=== PATIENT | male | born 1940 | race Caucasian/White ===

== ENCOUNTER 2016-10-01 00:25 | Inpatient (IN) | payer OTHER, MEDICARE ==
[~2016-10-01] VITALS: Ht 172.7 cm; Wt 76.7 kg
[2016-10-01] VITALS (40 sets, daily range): BP systolic 85–114; BP diastolic 46–69; PULSE 60–72; RESP 12–30; TEMP 93.9–98.8; O2SAT 95–98
[~2016-10-01 00:25] MED LIST: CARV6.25 PO; DIGO0.12 PO; FURO1TAB93 PO; LANTUSP SQ; LEVA500T PO; LISI-357 PO; NOVOLOGP2 SQ; ROSU40 PO; SM A81CH PO; SPIR25TA PO; TAB-TAB PO; TAMS0.4C67 PO; WARF-20 PO
[2016-10-01] MEDS ORDERED: ASPI81CH37 CHEW (01:22)
[2016-10-01] MEDS ORDERED: DIGO0.127 PO (01:22)
[2016-10-01] MEDS ORDERED: NOVOLOGP2 SQ (01:22)
[2016-10-01] MEDS ORDERED: SPIR25TA PO (01:22)
[2016-10-01] MEDS ORDERED: LANTUS2P SQ (01:22)
[2016-10-01] MEDS ORDERED: MULTTAB67 PO (01:22)
[2016-10-01] MEDS ORDERED: WARF-20 PO (01:22)
[2016-10-01] MEDS ORDERED: LISI-519 PO (01:22)
[2016-10-01] MEDS ORDERED: CARV6.25 PO (01:22)
[2016-10-01] MEDS ORDERED: FURO1TAB60 PO (01:22)
[2016-10-01] MEDS ORDERED: SODIUM CHLORIDE 0.9% FLUSH 10 ML FLUSH IVF PRN (01:30)
[2016-10-01 01:44] LABS: AUTOMATED NEUTROPHIL # 10.4 TH/MM3 (1.8-7.7); BASOPHIL # 0.2 TH/MM3 (0-0.2); HEMATOCRIT 36.3 % (39.0-51.0); LYMPH % 6.3 % (9.0-44.0); LYMPHOCYTE # 0.8 TH/MM3 (1.0-4.8); MEAN CELL VOLUME 95.5 FL (80.0-100.0); MEAN CORPUSCULAR HGB CONC 32.4 % (32.0-36.0); MONO % 7.8 % (0.0-8.0); NEUT % 83.9 % (16.0-70.0); PLATELET COUNT 139 TH/MM3 (150-450); RED CELL DISTRIBUTION WIDTH 13.9 % (11.6-17.2); WHITE BLOOD COUNT 12.4 TH/MM3 (4.0-11.0)
[2016-10-01 01:48] LABS: HEMO FLAGS DIFF FINAL
[2016-10-01 01:51] LABS: CHLORIDE 101 MEQ/L (98-107); POTASSIUM 5.7 MEQ/L (3.5-5.1); SODIUM (NA) 136 MEQ/L (136-145)
[2016-10-01 01:54] LABS: ANION GAP 10 MEQ/L (5-15); BICARBONATE 24.6 MEQ/L (21.0-32.0); BLOOD UREA NITROGEN 35 MG/DL (7-18)
[2016-10-01 01:57] LABS: ALT (GPT) 49 U/L (12-78); AST (GOT) 72 U/L (15-37)
[2016-10-01 01:58] LABS: APTT (PATIENT) 32.3 SEC (24.3-30.1); GLOMERULAR FILTRATION RATE 42 ML/MIN (>89); INTERNATIONAL NORMALIZED RATIO 2.4 RATIO; PROTHROMBIN TIME - PATIENT 27.1 SEC (9.8-11.6)
[2016-10-01 01:59] LABS: TOTAL BILIRUBIN ADULT 1.8 MG/DL (0.2-1.0)
[2016-10-01 02:00] LABS: ALKALINE PHOSPHATASE 87 U/L (45-117)
[2016-10-01] MEDS ORDERED: PIPERACIL-TAZO 4.5 GM PREMIX 100 ML IV STA (02:01)
[2016-10-01] MEDS ORDERED: VANCOMYCIN INJ 1,000 MG in SODIUM CHLOR 0.9% 250 ML INJ 250 ML IV STA (02:01)
--- NOTE | 2016-10-01 02:04 | RADHPO ---
EXAM DATE/TIME: 10/01/2016 01:38 [facility] COMPARISON: CTA BRAIN W 3D RECON, November 10, 2011, 12:59. INDICATIONS : Syncopal episode. RADIATION DOSE: 63.75 CTDIvol (mGy) MEDICAL HISTORY : Cardiovascular disease. Cerebrovascular disease. Hypertension.Diabetes SURGICAL HISTORY : CABG Pacemaker.Coronary artery stent. ENCOUNTER: Initial ACUITY: 1 day PAIN SCALE: 0/10 LOCATION: cranial TECHNIQUE: Multiple contiguous axial images were obtained of the head. Using automated exposure control and adj ustment of the mA and/or kV according to patient size, radiation dose was kept as low as reasonably a chievable to obtain optimal diagnostic quality images. FINDINGS: Compared to 2011. No intracranial hemorrhage, mass or shift on the current exam. Focal encephalomalac ia left parietal lobe is stable. No acute bony abnormality. No recent infarct identified. CONCLUSION: 1. No acute intracranial abnormalities. Fady Srivastava MD on October 01, 2016 at 1:59 Board Certified Radiologist. This report was verified electronically.
--- NOTE | 2016-10-01 02:12 | RADHPO ---
EXAM DATE/TIME: 10/01/2016 01:52 [facility] COMPARISON: No previous studies available for comparison. INDICATIONS : Palpitations. MEDICAL HISTORY : None. SURGICAL HISTORY : Pacemaker. CABG. ENCOUNTER: Initial ACUITY: 1 day PAIN SCORE: 0/10 LOCATION: Bilateral chest FINDINGS: Pacer leads overlying right atrium and right ventral. Mild cardiomegaly. Postoperative median sternot phillip. Mild edema pattern. No significant effusions. No pneumothorax. CONCLUSION: 1. Cardiomegaly. Mild interstitial edema pattern. No significant effusion. No pneumothorax. Fady Srivastava MD on October 01, 2016 at 2:09 Board Certified Radiologist. This report was verified electronically.
[2016-10-01] MEDS ORDERED: SODIUM CHLORID 0.9% 500 ML INJ 500 ML IV ONE ×2 (03:15)
[2016-10-01 03:24] LABS: GLUCOSE,URINE NEG (NEG); KETONE, URINE NEG (NEG); NITRITE,URINE NEG (NEG); PH, URINE 5.5 (5.0-8.5)
[2016-10-01 03:29] LABS: BLOOD, URINE MOD (NEG)
[2016-10-01 03:30] LABS: COMMENT (UR) CATH-CULT NOT IND; CULTURE IF INDICATED CATH CULTURE NOT IND; RBC, URINE 0-3 /hpf (0-3); SQUAMOUS EPITHELIAL CELL URINE 0-5 /hpf (0-5); URINE COLOR YELLOW (YELLW/STRAW); WBC, URINE 0-2 /hpf (0-5)
--- NOTE | 2016-10-01 03:40 | PD ---
HPI Chief Complaint: Neuro Symptoms/ Deficits Time Seen by Provider: 01:16 Travel History International Travel<30 days: No Contact w/Intl Traveler<30days: No Traveled to known affect area: No History of Present Illness HPI This is a 76-year-old male who has a history of congestive heart failure and diabetes who presents to the emergency department having had an episode of syncope. Patient reports he was sitting down to dinner when all of a sudden he lost consciousness. He woke up and found himself on the floor. He had some weakness following the episode and had some difficulty standing up but was ultimately able to walk his dog and then call his friend helped him. He denies any chest pain or shortness of breath at the time. He says he hasn't been feeling ill lately. He did not lose his bowels or bladder. He does think he hit his head. He is not sure how long he was out for. He lives alone. PFSH Past Medical History Arthritis: Yes (RIGHT KNEE) Atrial Fibrillation: Yes Autoimmune Disease: No Cancer: No Cardiac Catheterization: Yes Cardiovascular Problems: Yes Chest Pain: No Congestive Heart Failure: Yes Coronary Artery Disease: Yes Diabetes: Yes (ON INSULIN) Patient Takes Glucophage: No Diminished Hearing: Yes (HEARING AIDS BILAT) Endocrine: No GERD: Yes Genitourinary: No Hypertension: Yes Immune Disorder: No Musculoskeletal: Yes Neurologic: No Psychiatric: No Reproductive: No Respiratory: No Thyroid Disease: No Influenza Vaccination: Yes Past Surgical History AICD: Yes Cardiac Surgery: Yes (BYPASS IN , AICD 1990, PACEMAKER) Coronary Artery Bypass Graft: Yes (1995) Coronary Stent: Yes (2000) Pacemaker: Yes Other Surgery: Yes Social History Alcohol Use: Yes () Tobacco Use: No (QUIT 2004) Substance Use: No Allergies-Medications (Allergen,Severity, Reaction): Coded Allergies: Amiodarone (Verified Allergy, Unknown, 10/01/16) Reported Meds & Prescriptions Reported Meds & Active Scripts Active Reported Warfarin 4 Mg Tab 4 Mg PO DAILY Spironolactone 25 Mg Tab 12.5 Mg PO DAILY Multiple Vitamin 1 Tab 1 Tab PO DAILY Lisinopril 5 Mg Tab 5 Mg PO DAILY Lantus Inj (Insulin Glargine) 1,000 Unit/10 Ml Vial 50 Units SQ HS Novolog Inj (Insulin Aspart) 1,000 Unit/10 Ml Vial 20 Units SQ TIDAC Lasix (Furosemide) 40 Mg Tab 40 Mg PO BID Digox (Digoxin) 0.125 Mg Tab 0.125 Mg PO DAILY Coreg (Carvedilol) 6.25 Mg Tab 6.25 Mg PO BID Aspirin Low Dose (Aspirin) 81 Mg Chew 81 Mg CHEW DAILY Review of Systems Except as stated in HPI: all other systems reviewed are Neg Physical Exam Narrative GENERAL:Well appearing, no acute distress SKIN: Some ecchymoses on the left forehead HEAD: Atraumatic. Normocephalic. EYES: Pupils equal and round. No injection or drainage. ENT: Dry mucous membranes NECK: Trachea midline. CARDIOVASCULAR: Regular rate and rhythm. No murmur appreciated. RESPIRATORY: Clear to auscultation. Breath sounds equal bilaterally. GASTROINTESTINAL: Abdomen soft, non-tender, nondistended. MUSCULOSKELETAL: No obvious deformities. NEUROLOGICAL: Awake and alert. No obvious cranial nerve deficits. No dysarthria or aphasia. No upper or lower extremity drift. No upper extremity ataxia. PSYCHIATRIC: Appropriate mood and affect; insight and judgment normal. Data Data Last Documented VS Vital Signs Date Time Temp Pulse Resp B/P Pulse Ox O2 Delivery O2 Flow Rate FiO2 10/01/16 03:30 68 14 94/53 95 Room Air 10/01/16 03:15 97.4 Orders Electrocardiogram (10/01/16 01:25) Complete Blood Count With Diff (10/01/16 01:25) Comprehensive Metabolic Panel (10/01/16 01:25) Troponin I (10/01/16 01:25) Act Partial Throm Time (Ptt) (10/01/16 01:25) Prothrombin Time / Inr (Pt) (10/01/16 01:25) Urinalysis - C+S If Indicated (10/01/16 01:25) Chest, Single Ap (10/01/16 01:25) Ecg Monitoring (10/01/16 01:25) Iv Access Insert/Monitor (10/01/16:25) Oximetry (10/01/16 01:25) Sodium Chloride 0.9% Flush (Ns Flush) (10/01/16 01:30) D-Dimer (10/01/16 01:25) Ct Brain W/O Iv Contrast(Rout) (10/01/16 ) Lactic Acid Sepsis Protocol (10/01/16 02:01) Blood Culture (10/01/16 02:01) Vancomycin Inj (Vancomycin Inj) (10/01/16 02:01) Piperacil-Tazo 4.5 Gm Premix (Zosyn 4.5 (10/01/16 02:01) Digoxin (10/01/16 02:01) B-Type Natriuretic Peptide (10/01/16 02:01) Electrocardiogram (10/01/16 ) Cath For Specimen (10/01/16 02:57) Sodium Chlorid 0.9% 500 Ml Inj (Ns 500 M (10/01/16 03:15) Sodium Chlorid 0.9% 500 Ml Inj (Ns 500 M (10/01/16 03:15) Creatine Kinase (Cpk) (10/01/16 01:30) Labs Laboratory Tests Test 10/01/16 10/01/16 10/01/16 01:30 02:20 03:15 White Blood Count 12.4 TH/MM3 Red Blood Count 3.80 MIL/MM3 Hemoglobin 11.8 GM/DL Hematocrit 36.3 % Mean Corpuscular Volume 95.5 FL Mean Corpuscular Hemoglobin 31.0 PG Mean Corpuscular Hemoglobin 32.4 % Concent Red Cell Distribution Width 13.9 % Platelet Count 139 TH/MM3 Mean Platelet Volume 9.0 FL Neutrophils (%) (Auto) 83.9 % Lymphocytes (%) (Auto) 6.3 % Monocytes (%) (Auto) 7.8 % Eosinophils (%) (Auto) 0.0 % Basophils (%) (Auto) 2.0 % Neutrophils # (Auto) 10.4 TH/MM3 Lymphocytes # (Auto) 0.8 TH/MM3 Monocytes # (Auto) 1.0 TH/MM3 Eosinophils # (Auto) 0.0 TH/MM3 Basophils # (Auto) 0.2 TH/MM3 CBC Comment DIFF FINAL Differential Comment Prothrombin Time 27.1 SEC Prothromb Time International 2.4 RATIO Ratio Activated Partial 32.3 SEC Thromboplast Time D-Dimer Quantitative (PE/DVT) 1.40 MG/L FEU Sodium Level 136 MEQ/L Potassium Level 5.7 MEQ/L Chloride Level 101 MEQ/L Carbon Dioxide Level 24.6 MEQ/L Anion Gap 10 MEQ/L Blood Urea Nitrogen 35 MG/DL Creatinine 1.60 MG/DL Estimat Glomerular Filtration 42 ML/MIN Rate Random Glucose 222 MG/DL Calcium Level 9.0 MG/DL Total Bilirubin 1.8 MG/DL Aspartate Amino Transf 72 U/L (AST/SGOT) Alanine Aminotransferase 49 U/L (ALT/SGPT) Alkaline Phosphatase 87 U/L Troponin I 0.30 NG/ML Total Protein 7.1 GM/DL Albumin 3.7 GM/DL Lactic Acid Level 2.6 mmol/L B-Type Natriuretic Peptide 536 PG/ML Digoxin Level 0.7 NG/ML Urine Color YELLOW Urine Turbidity CLEAR Urine pH 5.5 Urine Specific [place] 1.017 Urine Protein TRACE mg/dL Urine Glucose (UA) NEG mg/dL Urine Ketones NEG mg/dL Urine Occult Blood MOD Urine Nitrite NEG Urine Bilirubin NEG Urine Leukocyte Esterase NEG Urine RBC 0-3 /hpf Urine WBC 0-2 /hpf Urine Squamous Epithelial 0-5 /hpf Cells Urine Bacteria NONE /hpf Microscopic Urinalysis Comment CATH-CULT NOT IND MDM Medical Decision Making Medical Screen Exam Complete: Yes Emergency Medical Condition: Yes Interpretation(s) Hypothermia, no tachycardia, EKG: normotensive ventricular paced, T-wave inversions in the inferior and lateral leads similar to prior EKG Leukocytosis Mild anemia INR is 2.4 (patient is on Coumadin) D-dimer is 1.4 Renal insufficiency Hyperglycemia Total bilirubin is 1.8 similar to prior Lactic acid is 2.6 Troponin is 0.3 BNP is 536 Chest x-ray: Cardiomegaly with mild interstitial edema CT of the head: No intracranial hemorrhage Differential Diagnosis Arrhythmia, myocardial infarction, dehydration, orthostatic hypotension, sepsis , electrolyte abnormality, rhabdomyolysis Narrative Course This is a 76-year-old male who presents to the emergency department having had an episode of syncope at home. He has multiple comorbidities. He was placed on a monitor and an IV was established. He is found to be quite hypothermic. He also had a slight leukocytosis so he was covered with broad-spectrum antibiotics. He has a history congestive heart failure and his BNP is 500 so he was given cautious gentle hydration. He does demonstrate renal insufficiency. His troponin is 0.3 which may be in the setting of a cardiac event but also may be due to renal insufficiency. Bilirubin is unchanged from prior. Patient appears to have severe sepsis of uncertain etiology. He will be admitted to the intensive care unit given his fragile volume status and hypothermia. Critical Care Narrative Aggregate critical care time was 45 minutes. Time to perform other separately billable procedures was not included in the critical care time. My time did not include minutes spent treating any other patients simultaneously or on activities that did not directly contribute to the patient's treatment. The services I provided to this patient were to treat and/or prevent clinically significant deterioration that could result in: Disability, I provided critical care services requiring my management, as noted below: Chart data review, documentation time, medication orders and management, vital sign assessments/reviewing monitor data, ordering and reviewing lab tests, ordering and interpreting/reviewing x-rays and diagnostic studies, care of the patient and discussion of the patient with the admitting physicians. Physician Communication Physician Communication Discussed with Dr. Santos Diagnosis Primary Impression: Severe sepsis Admitting Information Admitting Physician Requests: Admit Samantha Johns MD Oct 01, 2016 03:40
[2016-10-01 04:24] LABS: CREATINE KINASE 1944 U/L (39-308)
[2016-10-01 04:28] LABS: LACTIC ACID GHOST NOT REPORTABLE
[2016-10-01 05:08] LABS: CKMB 41.4 NG/ML (0.5-3.6)
[2016-10-01] MEDS ORDERED: CHLORHEXIDINE GLUCONATE 2 % 1 PACK (2 CLOTHS)(extra cloths) TOPICAL PRN (06:15)
[2016-10-01] MEDS: SODIUM CHLOR 0.9% 1000 ML INJ 1,000 ML IV SCH (06:42)
[2016-10-01] MEDS ORDERED: SENNOSIDES 8.6 MG TAB PO PRN (06:45)
[2016-10-01] MEDS ORDERED: BISACODYL 10 MG SUPP RECTAL PRN (06:45)
[2016-10-01] MEDS ORDERED: LACTULOSE SYRUP 20 GM/30 ML CUP PO PRN (06:45)
[2016-10-01] MEDS ORDERED: ACETAMINOPHEN 325 MG TAB PO PRN (06:45)
[2016-10-01] MEDS ORDERED: RESP: ALBUTEROL 2.5 MG/IPRATROPIUM 0.5 MG NEB (PRN) INH (06:45)
[2016-10-01] MEDS ORDERED: DEXTROSE 50% IN WATER 50 ML VIAL(D50) IV PRN (06:45)
[2016-10-01] MEDS ORDERED: ONDANSETRON HCL 4 MG/2 ML VIAL IV PRN (06:45)
[2016-10-01] MEDS ORDERED: CHLORHEXIDINE GLUCONATE 2 % 1 PACK (2 CLOTHS) TOP PRN (06:45)
[2016-10-01] MEDS ORDERED: MISCELLANEOUS NURSING INFORMATION XX SCH (06:45)
[2016-10-01] MEDS ORDERED: MAGNESIUM HYDROXIDE SUSP 30 ML CUP PO PRN (06:45)
[2016-10-01] MEDS ORDERED: GLUCAGON 1 MG/ML VIAL OTHER PRN (06:45)
[2016-10-01] MEDS ORDERED: SODIUM CHLORIDE 0.9% FLUSH 10 ML FLUSH IV FLUSH PRN (06:45)
[2016-10-01] MEDS: INSULIN NovoLIN REGULAR SUPPLEMENTAL SCALE SQ SCH ×4 (07:00→20:27)
--- NOTE | 2016-10-01 07:12 | HHI.HP ---
[facility] Service Critical Care Medicine Primary Care Physician Augie Tena Do, MD Admission Diagnosis severe sepsis Diagnosis: Travel History International Travel<30 Days: No Contact w/Intl Traveler <30 Da: No Traveled to Known Affected Are: No History of Present Illness This is a 76-year-old male who has a history of congestive heart failure and diabetes who presents to the emergency department having had an episode of syncope. Patient reports he was sitting down to dinner when all of a sudden he lost consciousness. He woke up and found himself on the floor. He had some weakness following the episode and had some difficulty standing up but was ultimately able to walk his dog and then call his friend helped him. He denies any chest pain or shortness of breath at the time. Critical care medicine was consulted for management .Upon my arrival to the ICU, the patient was noted to be sitting up semi-recumbent in the bed no noted dyspnea, alert and oriented 3 with a BP of 103/70. Upon discussion with patient, the patient has a AICD and per his report is needed to be changed/replaced. The patient does not remember experiencing an arrhythmia last night. Interrogation of AICD is pending this a.m.. History PFSH Past Medical History Arthritis: Yes (RIGHT KNEE) Atrial Fibrillation: Yes Autoimmune Disease: No Cancer: No Cardiac Catheterization: Yes Cardiovascular Problems: Yes Chest Pain: No Congestive Heart Failure: Yes Coronary Artery Disease: Yes Diabetes: Yes (ON INSULIN) Patient Takes Glucophage: No Diminished Hearing: Yes (HEARING AIDS BILAT) Endocrine: No GERD: Yes Genitourinary: No Hypertension: Yes Immune Disorder: No Musculoskeletal: Yes Neurologic: No Psychiatric: No Reproductive: No Respiratory: No Thyroid Disease: No Influenza Vaccination: Yes Past Surgical History AICD: Yes Cardiac Surgery: Yes (BYPASS IN , AICD 1990, PACEMAKER) Coronary Artery Bypass Graft: Yes (1995) Coronary Stent: Yes (2000) Pacemaker: Yes Other Surgery: Yes Social History Alcohol Use: Yes () Tobacco Use: No (QUIT 2004) Substance Use: No Allergies-Medications Allergies-Medications (Allergen,Severity, Reaction): Coded Allergies: Amiodarone (Verified Allergy, Unknown, 10/01/16) Reported Meds & Prescriptions Reported Meds & Active Scripts Active Reported Warfarin 4 Mg Tab 4 Mg PO DAILY Spironolactone 25 Mg Tab 12.5 Mg PO DAILY Multiple Vitamin 1 Tab 1 Tab PO DAILY Lisinopril 5 Mg Tab 5 Mg PO DAILY Lantus Inj (Insulin Glargine) 1,000 Unit/10 Ml Vial 50 Units SQ HS Novolog Inj (Insulin Aspart) 1,000 Unit/10 Ml Vial 20 Units SQ TIDAC Lasix (Furosemide) 40 Mg Tab 40 Mg PO BID Digox (Digoxin) 0.125 Mg Tab 0.125 Mg PO DAILY Coreg (Carvedilol) 6.25 Mg Tab 6.25 Mg PO BID Aspirin Low Dose (Aspirin) 81 Mg Chew 81 Mg CHEW DAILY ROS Review of Systems Except as stated in HPI: all other systems reviewed are Neg Past Family Social History Allergies: Coded Allergies: Amiodarone (Verified Allergy, Unknown, 10/01/16) Physical Exam Vital Signs Vital Signs Date Time Temp Pulse Resp B/P Pulse Ox O2 Delivery O2 Flow Rate FiO2 10/01/16 05:30 62 14 102/50 98 Room Air 10/01/16 05:00 97.8 61 14 97/56 98 Room Air 10/01/16 04:30 64 12 113/49 97 Room Air 10/01/16 04:00 64 12 96/48 96 Room Air 10/01/16 04:00 64 14 97 10/01/16 03:30 68 14 94/53 95 Room Air 10/01/16 03:15 97.4 69 14 114/62 97 Room Air 10/01/16 02:35 97.4 72 14 103/67 96 Room Air 10/01/16 02:00 72 14 111/56 97 Room Air 10/01/16 01:35 93.9 10/01/16 01:05 68 14 98 10/01/16 01:00 18 97 Room Air 10/01/16 01:00 68 14 101/69 97 Room Air 10/01/16 00:45 69 12 111/54 97 Laboratory Laboratory Tests Test 10/01/16 10/01/16 10/01/16 10/01/16 01:30 02:20 03:15 06:25 White Blood Count 12.4 Red Blood Count 3.80 Hemoglobin 11.8 Hematocrit 36.3 Mean Corpuscular Volume 95.5 Mean Corpuscular Hemoglobin 31.0 Mean Corpuscular Hemoglobin 32.4 Concent Red Cell Distribution Width 13.9 Platelet Count 139 Mean Platelet Volume 9.0 Neutrophils (%) (Auto) 83.9 Lymphocytes (%) (Auto) 6.3 Monocytes (%) (Auto) 7.8 Eosinophils (%) (Auto) 0.0 Basophils (%) (Auto) 2.0 Neutrophils # (Auto) 10.4 Lymphocytes # (Auto) 0.8 Monocytes # (Auto) 1.0 Eosinophils # (Auto) 0.0 Basophils # (Auto) 0.2 CBC Comment DIFF FINAL Differential Comment Prothrombin Time 27.1 Prothromb Time International 2.4 Ratio Activated Partial 32.3 Thromboplast Time D-Dimer Quantitative (PE/DVT) 1.40 Sodium Level 136 Potassium Level 5.7 Chloride Level 101 Carbon Dioxide Level 24.6 Anion Gap 10 Blood Urea Nitrogen 35 Creatinine 1.60 Estimat Glomerular Filtration 42 Rate Random Glucose 222 Calcium Level 9.0 Total Bilirubin 1.8 Aspartate Amino Transf 72 (AST/SGOT) Alanine Aminotransferase 49 (ALT/SGPT) Alkaline Phosphatase 87 Total Creatine Kinase 1944 Creatine Kinase MB 41.4 Creatine Kinase MB % 2.1 Troponin I 0.30 Total Protein 7.1 Albumin 3.7 Lactic Acid Level 2.6 1.9 B-Type Natriuretic Peptide 536 Digoxin Level 0.7 Urine Color YELLOW Urine Turbidity CLEAR Urine pH 5.5 Urine Specific [place] 1.017 Urine Protein TRACE Urine Glucose (UA) NEG Urine Ketones NEG Urine Occult Blood MOD Urine Nitrite NEG Urine Bilirubin NEG Urine Leukocyte Esterase NEG Urine RBC 0-3 Urine WBC 0-2 Urine Squamous Epithelial 0-5 Cells Urine Bacteria NONE Microscopic Urinalysis Comment CATH-CULT NOT IND Date/Time Procedure Status Source Growth 10/01/16 02:26 Aerobic Blood Culture Received Blood Peripheral Pending 10/01/16 02:26 Anaerobic Blood Culture Received Blood Peripheral Pending Result Diagram: 10/01/16 0130 10/01/16 0130 Imaging Last Impressions Chest X-Ray 10/01/16 0125 Signed Impressions: Service Date/Time: Saturday, October 01, 2016 01:52 - CONCLUSION: 1. Cardiomegaly. Mild interstitial edema pattern. No significant effusion. No pneumothorax. Fady Srivastava MD Head CT 10/01/16 0000 Signed Impressions: Service Date/Time: Saturday, October 01, 2016 01:38 - CONCLUSION: 1. No acute intracranial abnormalities. Fady Srivastava MD Septic Shock Reassessment Heart: Irregular Peripheral Pulses: Bounding Right Radial Bounding Left Radial Assessment and Plan Assessment and Plan This is a 76-year-old gentleman, with cardiovascular disease with a remote history status post CABG coronary stents, cardiomegaly, AICD with a history of systolic heart failure. Unknown etiology of syncopal episode at this point. [employer] interrogation of AICD pending this a.m.. Patient's current digoxin level was noted to be subtherapeutic,and his creatinine kinase level significantly elevated. Lactate level elevated possibly secondary to ischemic versus infectious etiology. At this point the patient requires close monitoring. Plan by systems: Neurologic: Syncopal episode Neurochecks per ICU protocol-the patient is status post fall, w/LOC and currently anticoagulated, close monitoring required Currently GCS of 15 10/01 CT scan no intracranial abnormalities Neosporin ointment to skin abrasions on for head Respiratory: Mild pulmonary edema Maintain O2 sat greater than 92%, currently on O2 at 2 L/m Bronchodilators every 4 hours when necessary for wheezing Cardiovascular: History of systolic congestive heart failure Atrial fibrillation H/O CABG H/O Coronary stent placement AICD placement 2009 Maintain map greater than 65 mmHg Consider vasopressor support if necessary AICD105/18/[id number], [id number] [employer]-plan interrogation this a.m., review of records for defibrillation pattern Patient's personal family medicine chair-Dr. Shree Ruff Cardiology [id number] recommendations Digoxin level 0.7-subtherapeutic, continue home medication digoxin 0.125/day, carvedilol 6.25/day, ASA 81 mg/daily. Hold lisinopril for now-secondary to low normal blood pressure, will resume when clinically indicated. Patient currently on Coumadin-INR 2.2, will hold for today, continue neuro checks-resume in a.m. if clinically indicated Obtain [id number] results BNP 538 Initial troponin 0.3-continue to trend Renal: Renal insufficiency Rhabdomyolysis BPH Insert Lazo Creatinine kinase 1943-gentle hydration instituted, trend levels -- Strict I/Os FEN/GI: Hyperkalemia IV fluids normal saline at 42 cc/hour Hold spironolactone , potassium level 5.7. Will reinstitute Lasix when clinically indicated with normalization of blood pressure 1800-calorie ADA diet Zofran for nausea Protonix GI prophylaxis Bowel regimen Heme/ID: Thrombocytopenia Lactic acidosis Monitor CBC INR 2.2-patient medication regimen Coumadin, will continue to monitor-and restart Coumadin in a.m. Patient placed on Zosyn, and Linezolid empirically, will descalate if indicated Follow-up blood cultures, urine cultures Trend lactate level-possibly ischemia versus infectious process Obtain pro-calcitonin Endocrine: Diabetes mellitus Glucose monitoring per ICU protocol Low-dose insulin regimen -- SSI Prophylaxis: GI Prophylaxis Protonix DVT Prophylaxis -- SCDs INR 2.2-patient takes Coumadin daily Lines: Peripheral IVs 2. Central line if indicated Dispo: This patient remains critically ill with one or more organ systems which are or may become a threat to life. I have spent in excess of 60 minutes discontinuously in the care and management of this patient. This time is exclusive of procedures, and includes, but is not limited to, evaluation of the patient, review of the medical record, discussions with family, consultants, nursing staff, or respiratory therapy, and documentation in the medical record. Code Status Full Discussed Condition With LEADER TIER and patient at bedside Kellie Bolivar MD Oct 01, 2016 07:12
[2016-10-01] MEDS ORDERED: LINEZOLID 200 MG PREMIX 100 ML IV SCH (08:00)
[2016-10-01] MEDS: CARVEDILOL 6.25 MG TAB PO SCH ×2 (08:28→20:26)
[2016-10-01] MEDS: PIPERACIL-TAZO 4.5 GM PREMIX 100 ML IV SCH ×3 (08:28→18:02)
[2016-10-01] MEDS: DIGOXIN 0.125 MG TAB PO SCH (08:28)
[2016-10-01] MEDS: ASPIRIN 81 MG CHEW TAB CHEW SCH (08:28)
[2016-10-01] MEDS: PANTOPRAZOLE SODIUM 40 MG VIAL IV SCH (08:28)
[2016-10-01] MEDS: DOCUSATE SODIUM 50 MG/SENNA 8.6 MG TAB PO SCH ×2 (08:31→20:26)
[2016-10-01] MEDS: SODIUM CHLORIDE 0.9% FLUSH 10 ML FLUSH IV FLUSH SCH ×2 (08:32→20:26)
[2016-10-01] MEDS: NEOMYCIN/POLYMYXIN/BACITRACIN OINT 15 GM TUBE TOPICAL SCH ×2 (10:32→12:00)
[2016-10-01] MEDS: LINEZOLID 600 MG PREMIX 300 ML IV SCH ×2 (10:33→21:57)
[2016-10-01] MEDS ORDERED: BACITRACIN TOP OINT 15 GM TUBE TOPICAL SCH (12:00)
--- NOTE | 2016-10-01 13:08 | EKG ---
Date Performed: 10/01/2016 Time Performed: 02:12:47 PTAGE: 76 years EKG: UNCERTAIN IRREGULAR RHYTHM ELECTRONIC VENTRICULAR PACEMAKER -- CONTOUR ANALYSIS BASED ON IN TRINSIC RHYTHM POSSIBLE ANTERIOR MYOCARDIAL INFARCTION MODERATE T-WAVE ABNORMALITY, CONSIDER LATERAL ISCHEMIA MODERATE T-WAVE ABNORMALITY, CONSIDER INFERIOR ISCHEMIA ABNORMAL ECG PREVIOUS TRACING : 10/26/2013 20.07 Compared to prior tracing no significant change DOCTOR: Flip Roberto Interpretating Date/Time 10/01/2016 13:06:15
--- NOTE | 2016-10-01 16:25 | RADHPO ---
EXAM DATE/TIME: 10/01/2016 20:14 [facility] COMPARISON: No previous studies available for comparison. INDICATIONS : Syncope. MEDICAL HISTORY : Congestive heart failure. Arthritis. Diabetes mellitus type 1. CAD. Afib. HTN. GERD SURGICAL HISTORY : CABG. Pacemaker. Coronary artery stent. Cardiac cath. Blood transfusions. ENCOUNTER: Initial ACUITY: 2 days PAIN SCORE: 0/10 LOCATION: Bilateral neck PEAK SYSTOLIC VELOCITIES (cm/sec): ICA/CCA RATIO: Right: 0.9 Left: 0.7 ICA: Right: 79 Left: 75 CCA: Right: 85 Left: 115 ECA: Right: 96 Left: 120 VERTEBRAL: Right: 66 antegrade Left: 54 antegrade Elevated flow velocities and ICA/CCA ratios have been found to correlate with increased degrees of vessel stenosis, calculated as percentage of diameter relative to a normal segment of distal ICA/CCA FINDINGS: RIGHT CAROTID: Calcified plaque in the bulb extending to the internal carotid artery origin. Waveforms are within no rmal limits. LEFT CAROTID: Calcified plaque in the bulb. Waveforms are within normal limits. VERTEBRAL ARTERIES: Antegrade flow is seen in both vertebral arteries. MISCELLANEOUS: None. CONCLUSION: 1. Calcified plaque in the bulbs bilaterally extending to the origin of the ICA. Resultant mild, <50% , ICA stenosis. No significant hemodynamic stenosis on the left. 2. Antegrade vertebral artery flow bilaterally. Gaudencio Serrano MD on October 01, 2016 at 16:19 Board Certified Radiologist. This report was verified electronically.
--- NOTE | 2016-10-01 16:43 | ECHRPT ---
Indication: Heart failure, unspecified CONCLUSIONS Normal left ventricular size. There is dyskinesis of the apical 1/3 with moderate dysfunction at this area. The rest of the ventri alfonso moves well. The EF appears to be between 40-45%wall thickness is normal. This study was not technically sufficient to allow for evaluation of left ventricular diastolic func tion. Mild thickening of the mitral valve leaflets. Moderate mitral valve regurgitation. Moderate mitral annular calcification. There is also calcification on the anterior lateral papillary muscle Mild to moderate thickening of the aortic valve leaflets. Moderate aortic valve regurgitation. No aortic valve stenosis. Mild to moderate thickening of the aortic valve leaflets. Pacemaker seen in right heart. Structurally normal tricuspid valve. There is moderate to severe tricuspid valve regurgitation. There is estimated mild pulmonary hypertension present (range 40-50 mmHg). BP: 102 / 50 HR: 67 Rhythm: SINUS AND PACING MEASUREMENTS (Male / Female) Normal Values Technical Quality:Fair 2D ECHO LV Diastolic Diameter PLAX 5.1 cm 4.2 - 5.9 / 3.9 - 5.3 cm LV Systolic Diameter PLAX 4.2 cm IVS Diastolic Thickness 0.9 cm 0.6 - 1.0 / 0.6 - 0.9 cm LVPW Diastolic Thickness 0.9 cm 0.6 - 1.0 / 0.6 - 0.9 cm LV Relative Wall Thickness 0.4 LVOT Diameter 2.0 cm Aortic Root Diameter 3.2 cm LA Systolic Diameter LX 3.8 cm 3.0 - 4.0 / 2.7 - 3.8 cm M-MODE AV Cusp Separation MM 1.7 cm DOPPLER AV Peak Velocity 142.0 cm/s AV Peak Gradient 8.1 mmHg AV Mean Gradient 4.0 mmHg AV Velocity Time Integral 29.9 cm AI Peak Velocity 317.7 cm/s AI Peak Gradient 40.4 mmHg AI Pressure Half Time 637.0 ms LVOT Peak Velocity 66.0 cm/s LVOT Peak Gradient 1.7 mmHg LVOT Velocity Time Integral 14.2 cm LVOT Cardiac Index 1515.9 cm/minm AV Area Cont Eq vti 1.5 cm AV Area Cont Eq pk 1.5 cm Mitral E Point Velocity 99.3 cm/s Mitral A Point Velocity 32.4 cm/s Mitral E to A Ratio 3.1 LV E' Lateral Velocity 6.7 cm/s Mitral E to LV E' Lateral Ratio 14.8 LV E' Septal Velocity 5.7 cm/s Mitral E to LV E' Septal Ratio 17.6 TR Peak Velocity 278.0 cm/s TR Peak Gradient 30.9 mmHg PV Peak Velocity 53.5 cm/s PV Peak Gradient 1.1 mmHg FINDINGS LEFT VENTRICLE Normal left ventricular size. There is dyskinesis of the apical 1/3 with moderate dysfunction at this area. The rest of the ventri alfonso moves well. The EF appears to be between 40-45%wall thickness is normal. This study was not technically sufficient to allow for evaluation of left ventricular diastolic func tion. RIGHT VENTRICLE Normal right ventricular size and systolic function. LEFT ATRIUM The left atrial size is [id number] dilated. RIGHT ATRIUM The right atrial size is [id number] dilated. ATRIAL SEPTUM Normal atrial septal thickness without atrial level shunting by limited color doppler interrogation. AORTA The aortic root and proximal ascending aorta are normal in size on limited imaging. MITRAL VALVE Mild thickening of the mitral valve leaflets. Moderate mitral valve regurgitation. Moderate mitral annular calcification. There is also calcification on the anterior lateral papillary muscle. AORTIC VALVE Mild to moderate thickening of the aortic valve leaflets. Moderate aortic valve regurgitation. No aortic valve stenosis. TRICUSPID VALVE Pacemaker seen in right heart. Structurally normal tricuspid valve. There is moderate to severe tricuspid valve regurgitation. There is estimated mild pulmonary hypertension present (range 40-50 mmHg). PULMONARY VALVE Mild pulmonary valve regurgitation. VESSELS The inferior vena cava is dilated. PERICARDIUM No pericardial effusion. Madiha Stallworth MD, FACC (Electronically Signed) Final Date:01 October 2016 16:42
--- NOTE | 2016-10-01 18:37 | MB ---
cc: CATHLEEN SALINAS MD DATE OF CONSULTATION 10/01/16 REASON FOR CONSULTATION Syncope HISTORY OF PRESENT ILLNESS Mr. Sims is a 76-year-old patient of my partner, Dr. Ruff. He does have a history of atrial fibrillation, coronary artery bypass graft, ICD. He presented to the emergency room after a syncopal episode. The patient reports that he was moving about the dining room at dinnertime. He had a sudden loss of consciousness without any prodromal symptoms. He was subsequently weak and did obviously seek attention in the emergency room. The patient denies any chest pain or palpitations either then or now. PAST MEDICAL HISTORY 1. Arthritis, 2. Atrial fibrillation with a CHADS score six (over 75, diabetic, hypertension, CVA, CHF) That makes the CHADS score of 7. 3. He does have history of coronary artery bypass graft with EF of 35-40%, Medtronic ICD, 4. Diabetes, 5. Hypertension, 6. Hyperlipidemia, 7. Left bundle branch block, 8. V tach, 9. Chronic kidney disease 10. Chronic obstructive pulmonary disease 11. Subarachnoid hemorrhage. 12. Very hard of hearing. SOCIAL HISTORY The patient is a former smoker. He occasionally has alcohol. ALLERGIES AMIODARONE MEDICATIONS Outpatient include 1. Coumadin. 2. Spironolactone. 3. Lisinopril. 4. Insulin 5. Lasix. 6. Digoxin. 7. Coreg 8. Aspirin REVIEW OF SYSTEMS The patient does note that he has had about an eight pound weight gain. Other than this and what is mentioned in the HPI, all 12 systems are negative. PHYSICAL EXAMINATION VITAL SIGNS: 60, 18, 85/49. GENERAL: He is an overweight elderly man who is in no apparent distress. NECK: Free from JVD. LUNGS: Do have a few crackles in the bases. CARDIOVASCULAR: He has a normal S1 and S2. ABDOMEN: Soft. EXTREMITIES: A trace amount of edema. LABORATORY DATA Significant for white count of 12.4, INR of 2.4. His creatinine is 1.6. CK-MB percent is 2.1 with a troponin of 0.3 and a BNP of 536. IMAGING STUDIES Chest x-ray shows cardiomegaly and mild interstitial edema. CT head is negative for any acute process. ICD INTERROGATION ICD interrogation does show that there is normal device function. His thoracic impedance suggests that there is fluid overload. No therapies were delivered nor were any tachyarrhythmias found. IMPRESSION 1. Syncope - the patient does not have any overt etiology beyond the apparent hypotension. He is relatively stable today. At this point, he does as well appear to be septic, although there is no overt source of infection. This obviously could have as well contributed. 2. Hypotension - At this point, I do agree with holding the lisinopril. We may have to decrease his Coreg as well, although I am a bit apprehensive to do this secondary to his history of atrial fibrillation. 3. Atrial fibrillation - the patient does have elevated CHADS vas score and thus at this point I would continue him on his Coumadin, although I will ultimately leave the choice to his primary cyber legal advisor, Dr. Ruff, as to whether he should stay on this or not. 4. Acute on chronic heart failure - the patient is bit hypotensive. Given his current situation with the hypotension and probable sepsis, I do agree with holding his lisinopril. I would like to try and restart his Lasix should his systolics get back into the 90s. Dobutamine is not unreasonable, although I am not in favor of it at this time and would rather hold off to allow the antibiotics some time to work. 5. Sepsis - this is being managed by the primary team. Cathleen Salinas M.D. KINZA/ /3:26 PM /6:17 PM
[2016-10-01 20:42] LABS: CKMB 21.4 NG/ML (0.5-3.6)
[2016-10-02] VITALS (27 sets, daily range): BP systolic 94–128; BP diastolic 49–71; PULSE 58–72; RESP 14–27; TEMP 97.7–98.7; O2SAT 87–98
[2016-10-02] MEDS: PIPERACIL-TAZO 4.5 GM PREMIX 100 ML IV SCH ×2 (00:11→06:09)
[2016-10-02] MEDS: NEOMYCIN/POLYMYXIN/BACITRACIN OINT 15 GM TUBE TOPICAL SCH ×4 (00:11→23:41)
[2016-10-02] MEDS: CHLORHEXIDINE GLUCONATE 2 % 1 PACK (2 CLOTHS)(taper/protocol) TOPICAL SCH (03:42)
[2016-10-02] MEDS ORDERED: CHLORHEXIDINE GLUCONATE 2 % 1 PACK (2 CLOTHS) TOP SCH (04:00)
[2016-10-02] MEDS: SODIUM CHLOR 0.9% 1000 ML INJ 1,000 ML IV SCH (06:10)
[2016-10-02 06:14] LABS: AUTOMATED NEUTROPHIL # 5.4 TH/MM3 (1.8-7.7); BASOPHIL # 0.1 TH/MM3 (0-0.2); BASOPHIL % 0.8 % (0.0-2.0); EOSINOPHIL # 0.1 TH/MM3 (0-0.4); EOSINOPHIL % 0.6 % (0.0-4.0); HEMATOCRIT 33.8 % (39.0-51.0); HEMO FLAGS DIFF FINAL; LYMPH % 21.9 % (9.0-44.0); LYMPHOCYTE # 1.9 TH/MM3 (1.0-4.8); MEAN CELL VOLUME 95.1 FL (80.0-100.0); MEAN CORPUSCULAR HEMOGLOBIN 31.2 PG (27.0-34.0); MEAN CORPUSCULAR HGB CONC 32.8 % (32.0-36.0); MONO % 11.6 % (0.0-8.0); NEUT % 65.1 % (16.0-70.0); PLATELET COUNT 131 TH/MM3 (150-450); RED BLOOD COUNT 3.56 MIL/MM3 (4.50-5.90); RED CELL DISTRIBUTION WIDTH 14.4 % (11.6-17.2); WHITE BLOOD COUNT 8.5 TH/MM3 (4.0-11.0)
--- NOTE | 2016-10-02 06:15 | RADHPO ---
EXAM DATE/TIME: 10/02/2016 05:59 [facility] COMPARISON: CHEST SINGLE AP, October 01, 2016, 1:52. INDICATIONS : Shortness of breath. MEDICAL HISTORY : Congestive heart failure. Diabetes mellitus type I. Arthritis. CAD, AFIB, HTN, GERD SURGICAL HISTORY : CABG. Pacemaker. Coronary artery stent. ENCOUNTER: Subsequent ACUITY: 2 days PAIN SCORE: 0/10 LOCATION: Bilateral chest FINDINGS: Single AP view of the chest. AICD in place. Median sternotomy wires. Mild pulmonary vasculature centr al prominence and indistinctness. No evidence of pleural effusion or pneumothorax. Mild cardiac silho uette enlargement unchanged. CONCLUSION: Mild cardiac silhouette enlargement and pulmonary vascular congestion. No significant interval change . Yasmani Valentine MD on October 02, 2016 at 6:13 Board Certified Radiologist. This report was verified electronically.
[2016-10-02 06:22] LABS: INTERNATIONAL NORMALIZED RATIO 2.3 RATIO; PROTHROMBIN TIME - PATIENT 26.5 SEC (9.8-11.6)
[2016-10-02 06:30] LABS: BICARBONATE 26.9 MEQ/L (21.0-32.0); MAGNESIUM 2.3 MG/DL (1.5-2.5); POTASSIUM 4.3 MEQ/L (3.5-5.1)
[2016-10-02] MEDS ORDERED: DO NOT ADM ANY ANTICOAGULANT DRUGS OTHER PRN (07:00)
--- NOTE | 2016-10-02 07:04 | HHI.CCPN ---
Subjective Remarks/Hospital Course This is a 76-year-old male who has a history of congestive heart failure and diabetes who presents to the emergency department having had an episode of syncope. Patient reports he was sitting down to dinner when all of a sudden he lost consciousness. He woke up and found himself on the floor. He had some weakness following the episode and had some difficulty standing up but was ultimately able to walk his dog and then call his friend helped him. He denies any chest pain or shortness of breath at the time. Critical care medicine was consulted for management .Upon my arrival to the ICU, the patient was noted to be sitting up semi-recumbent in the bed no noted dyspnea, alert and oriented 3 with a BP of 103/70. Upon discussion with patient, the patient has a AICD and per his report is needed to be changed/replaced. The patient does not remember experiencing an arrhythmia last night. Interrogation of AICD is pending this a.m.. Subjective: 10/02: Resolution of hypotension, CALVIN inhibitor continues to be held. Serial troponins level were noted to be elevated, cardiology following. The patient continues on beta igor,aspirin and digoxin. Neuro checks within normal limits, Coumadin and Lasix resumed today, current INR 2.3.. Spironolactone still on hold secondary to initial hyperkalemia. Creatinine kinase trending down, gentle hydration continues 30 cc/hour. Leukocytosis resolved, patient continues Linezolid and Zosyn, and empirically. Patient is tolerating a heart healthy diet. The patient has BPH and was noted to have significant urinary retention, yesterday with insertion of the Lazo obtaining greater than 600 cc. Interrogation of AICD, noted no defibrillations. Objective Vital Signs Date Time Temp Pulse Resp B/P Pulse Ox O2 Delivery O2 Flow Rate FiO2 10/02/16 06:00 62 10/02/16 06:00 23 110/55 96 10/02/16 04:00 98.7 10/01/16 20:00 Nasal Cannula 2.00 Intake and Output 10/01/16 10/01/16 10/02/16 08:00 16:00 00:00 Intake Total 750 ml 1307 ml 550 ml Output Total 430 ml 825 ml 275 ml Balance 320 ml 482 ml 275 ml Result Diagram: 10/02/16 0541 10/02/16 0541 Imaging Last Impressions Chest X-Ray 10/01/16 0125 Signed Impressions: Service Date/Time: Saturday, October 01, 2016 01:52 - CONCLUSION: 1. Cardiomegaly. Mild interstitial edema pattern. No significant effusion. No pneumothorax. Fady Srivastava MD Head CT 10/01/16 0000 Signed Impressions: Service Date/Time: Saturday, October 01, 2016 01:38 - CONCLUSION: 1. No acute intracranial abnormalities. Fady Srivastava MD Objective Remarks GENERAL: Well-developed, well-nourished male in no apparent distress SKIN: Warm and dry. Multiple abrasions on forehead and hands and knee from fall HEAD: Atraumatic. Normocephalic. EYES: Pupils equal and round. No scleral icterus. No injection or drainage. ENT: No nasal bleeding or discharge. Mucous membranes pink and moist. NECK: Trachea midline. No JVD. CARDIOVASCULAR: Normal rate, irregular rhythm. RESPIRATORY: No accessory muscle use. Clear to auscultation. Breath sounds equal bilaterally. GASTROINTESTINAL: Abdomen soft, non-tender, nondistended. No guarding. MUSCULOSKELETAL: Extremities without clubbing, cyanosis, or edema. No obvious deformities. NEUROLOGICAL: Awake and alert. RASS 0. No gross focal/sensory deficits. Follows commands in all 4 extremities. Urinary Catheter: Yes Lazo insert reason: ICU Pt Getting Diuretics Date of Insertion: Oct 01, 2016 Vascular Central Line Catheter: No A/P Assessment and Plan Neurologic: Syncopal episode Neurochecks per ICU protocol-the patient is status post fall, w/LOC and currently anticoagulated, close monitoring required Currently GCS of 15 10/01 CT scan no intracranial abnormalities Neosporin ointment to skin abrasions on for head Respiratory: Mild pulmonary edema Maintain O2 sat greater than 92%, currently 97% Wean off O2 Bronchodilators every 4 hours when necessary for wheezing Cardiovascular: History of systolic congestive heart failure Atrial fibrillation H/O CABG H/O Coronary stent placement AICD placement 2009- VVIR AMI Maintain map greater than 65 mmHg Consider vasopressor support if necessary 03/17/2010-[id number], [id number] Medtronic-review of records for defibrillation pattern-none noted Patient's personal director of academic support-Dr. Shree Ruff Cardiology following Digoxin level 0.7-subtherapeutic, continue home medication digoxin 0.125/day, carvedilol 6.25/day, ASA 81 mg/daily. Hold lisinopril for now-secondary to low normal blood pressure, will resume when clinically indicated. Patient currently on Coumadin-INR 2.3, resumed today 10/02-EF 4045 %, apical dyskinesia, moderate MR, mild pulmonary regurgitation, moderate to severe TR BNP 538->431 today Initial troponin 0.3->2.99->3.18 Renal: Renal insufficiency Rhabdomyolysis BPH Maintain Lazo Creatinine kinase 1944 -> 1325 gentle hydration instituted, trend levels -- Strict I/Os FEN/GI: Hyperkalemia-resolved IV fluids normal saline at 30 cc/hour On Hold spironolactone , potassium level 4.3 Lasix resumed 1800-calorie ADA diet Zofran for nausea Protonix GI prophylaxis Bowel regimen Heme/ID: Thrombocytopenia Lactic acidosis Monitor CBC INR 2.2-patient medication regimen Coumadin, will continue to monitor- Coumadin restarted Patient placed on Zosyn, and Linezolid empirically (day 2), will descalate if indicated Follow-up blood cultures, urine cultures-NGTD Trend lactate level-possibly ischemia versus infectious process Obtain pro-calcitonin Endocrine: Diabetes mellitus Glucose monitoring per ICU protocol Low-dose insulin regimen -- SSI MSK: PT eval and treat OOB to chair Prophylaxis: GI Prophylaxis Protonix DVT Prophylaxis -- SCDs, OOB to chair INR 2.2-patient takes Coumadin daily Lines: Peripheral IVs 2. Central line if indicated Dispo: Discussed with Dr. Stallworth, patient and PRODUCT/DEVICE TECHNOLOGIST at bedside Level 3 Physician Kellie Wong MD Oct 02, 2016 07:04
[2016-10-02 08:15] LABS: CKMB 9.2 NG/ML (0.5-3.6)
[2016-10-02] MEDS ORDERED: WARFARIN SOD 4 MG TAB PO SCH (09:00)
[2016-10-02] MEDS: DOCUSATE SODIUM 50 MG/SENNA 8.6 MG TAB PO SCH ×2 (09:00→20:03)
[2016-10-02] MEDS: INSULIN NovoLIN REGULAR SUPPLEMENTAL SCALE SQ SCH ×4 (09:05→20:08)
[2016-10-02] MEDS: PANTOPRAZOLE SODIUM 40 MG VIAL IV SCH (09:16)
[2016-10-02] MEDS: DIGOXIN 0.125 MG TAB PO SCH (09:17)
[2016-10-02] MEDS: FUROSEMIDE 40 MG TAB PO SCH ×2 (09:17→20:03)
[2016-10-02] MEDS: ASPIRIN 81 MG CHEW TAB CHEW SCH (09:17)
[2016-10-02] MEDS: LINEZOLID 600 MG PREMIX 300 ML IV SCH (09:18)
[2016-10-02] MEDS: SODIUM CHLORIDE 0.9% FLUSH 10 ML FLUSH IV FLUSH SCH ×2 (09:19→20:03)
[2016-10-02] MEDS: CARVEDILOL 6.25 MG TAB PO SCH ×2 (12:08→20:03)
[2016-10-02] MEDS: PIPERACIL-TAZO 3.375 GM PREMIX 50 ML IV SCH ×3 (12:10→23:40)
--- NOTE | 2016-10-02 12:31 | EKG ---
Date Performed: 10/01/2016 Time Performed: 08:41:44 PTAGE: 76 years EKG: Demand pacing LVH with secondary repolarization abnormality Inferior/lateral ST-T changes m ay be due to hypertrophy and/or ischemia Abnormal ECG PREVIOUS TRACING : 10/01/2016 02.12 Compared to prior tracing no significant change DOCTOR: Flip Roberto Interpretating Date/Time 10/02/2016 12:27:24
[2016-10-02] MEDS: WARFARIN SOD 4 MG TAB PO SCH (16:46)
--- NOTE | 2016-10-02 18:14 | PD.CONS ---
History of Present Illness Service Infectious disease Consult Requested By Dr Kellie Bolivar Reason for Consult Possible sepsis Primary Care Physician Augie Tena Do, MD Diagnoses: (1) Syncope (2) Sepsis (3) Diabetes type 2, uncontrolled History of Present Illness Patient was feeling well when he says as he was getting ready for dinner - he must have passed out as later he found himself on the floor- he is not sure how long he was on the floor. He was hypotensive and hypothermic when he came in with some leucocytosis and there was concern of sepsis. At this time he feels better though weak. Review of Systems Constitutional: COMPLAINS OF: Fatigue, DENIES: Fever, Chills Endocrine: DENIES: Polydipsia, Polyuria Eyes: DENIES: Blurred vision, Diplopia, Eye pain Ears, nose, mouth, throat: COMPLAINS OF: Hearing loss, DENIES: Nasal discharge , Oral lesions Respiratory: DENIES: Cough, Hemoptysis Cardiovascular: COMPLAINS OF: Syncope, DENIES: Dyspnea on Exertion, Lower Extremity Edema Gastrointestinal: DENIES: Constipation, Diarrhea, Vomiting Genitourinary: DENIES: Urgency, Dysuria Musculoskeletal: DENIES: Joint pain, Joint Swelling Integumentary: DENIES: Pruritus, Rash Neurologic: COMPLAINS OF: Poor Balance, DENIES: Headache, Speech Problems Psychiatric: DENIES: Hallucinations, Agitation Past Family Social History Allergies: Coded Allergies: Amiodarone (Verified Allergy, Unknown, 10/01/16) Past Medical History DM HTN CAD Afib H/o Subarachnoid hemorrhage H/o Urosepsis Past Surgical History CABG H/o Coronary stent H/o AICD , pacemaker Reported Medications Zyvox and Zosyn Family History Non contributory Social History Lives alone Retired No recent travel Has a dog at home Physical Exam Vital Signs Vital Signs Date Time Temp Pulse Resp B/P Pulse Ox O2 Delivery O2 Flow Rate FiO2 10/02/16 16:18 97.9 10/02/16 16:07 95 Nasal Cannula 1.00 10/02/16 16:00 60 10/02/16 14:05 66 23 119/63 87 10/02/16 14:05 66 10/02/16 13:00 72 26 105/71 98 10/02/16 12:00 62 26 111/61 96 10/02/16 12:00 97.7 10/02/16 12:00 60 6/18/17 10:00 60 20 108/57 93 10/02/16 10:00 60 10/02/16 09:16 60 18 109/60 95 10/02/16 08:16 60 18 113/60 95 10/02/16 08:00 98.4 10/02/16 08:00 60 10/02/16 07:16 60 22 111/56 95 10/02/16 06:00 62 10/02/16 06:00 62 23 110/55 96 10/02/16 05:00 62 18 119/56 96 10/02/16 04:00 62 10/02/16 04:00 98.7 62 20 103/56 97 10/02/16 03:00 60 24 103/54 97 10/02/16 02:00 60 17 102/55 96 10/02/16 02:00 60 10/02/16 01:00 62 18 104/53 97 10/02/16 00:00 60 10/02/16 00:00 98.3 60 15 94/49 96 10/01/16 23:00 60 18 103/59 98 10/01/16 22:00 62 20 112/59 97 10/01/16 22:00 62 10/01/16 21:00 60 17 104/54 98 10/01/16 20:00 98.8 62 21 102/52 96 10/01/16 20:00 98 Nasal Cannula 2.00 10/01/16 20:00 62 10/01/16 19:00 64 22 100/56 Physical Exam GENERAL: This is a Chronically ill - sitting up in chair, in no apparent distress. SKIN: No rashes, ecchymoses or lesions. Cool and dry. HEAD:. Normocephalic. No temporal or scalp tenderness. EYES: Pupils equal round and reactive. Extraocular motions intact. No scleral icterus. No injection or drainage. ENT: Nose without bleeding, purulent drainage or septal hematoma. Throat without erythema, tonsillar hypertrophy or exudate. Uvula midline. Airway patent. NECK: Trachea midline. No JVD or lymphadenopathy. Supple, nontender, no meningeal signs. CARDIOVASCULAR: Regular rate and rhythm without murmurs, gallops, or rubs. Has a AICD/ Pacemaker left chest wall RESPIRATORY: Clear to auscultation. Breath sounds equal bilaterally. No wheezes , rales, or rhonchi. GASTROINTESTINAL: Abdomen soft, non-tender, nondistended. No hepato-splenomegaly , or palpable masses. No guarding. Foleys with some hematuria MUSCULOSKELETAL: Extremities without clubbing, cyanosis, or edema. No joint tenderness, effusion, or edema noted. No calf tenderness. Negative Homans sign bilaterally. NEUROLOGICAL: Awake and alert. Cranial nerves II through XII intact. Motor and sensory grossly within normal limits. Five out of 5 muscle strength in all muscle groups. Normal speech. Laboratory Laboratory Tests Test 10/01/16 10/02/16 19:20 05:41 Lactic Acid Level 2.3 Total Creatine Kinase 1325 1517 Creatine Kinase MB 21.4 9.2 Creatine Kinase MB % 1.6 0.6 Troponin I 3.18 B-Type Natriuretic Peptide 431 White Blood Count 8.5 Red Blood Count 3.56 Hemoglobin 11.1 Hematocrit 33.8 Mean Corpuscular Volume 95.1 Mean Corpuscular Hemoglobin 31.2 Mean Corpuscular Hemoglobin 32.8 Concent Red Cell Distribution Width 14.4 Platelet Count 131 Mean Platelet Volume 9.0 Neutrophils (%) (Auto) 65.1 Lymphocytes (%) (Auto) 21.9 Monocytes (%) (Auto) 11.6 Eosinophils (%) (Auto) 0.6 Basophils (%) (Auto) 0.8 Neutrophils # (Auto) 5.4 Lymphocytes # (Auto) 1.9 Monocytes # (Auto) 1.0 Eosinophils # (Auto) 0.1 Basophils # (Auto) 0.1 CBC Comment DIFF FINAL Differential Comment Prothrombin Time 26.5 Prothromb Time International 2.3 Ratio Sodium Level 140 Potassium Level 4.3 Chloride Level 105 Carbon Dioxide Level 26.9 Anion Gap 8 Blood Urea Nitrogen 32 Creatinine 1.70 Estimat Glomerular Filtration 39 Rate Random Glucose 141 Calcium Level 8.0 Phosphorus Level 2.8 Magnesium Level 2.3 Date/Time Procedure Status Source Growth 10/01/16 11:05 Urine Culture - Preliminary Resulted Urine Catheterized Urine NO GROWTH IN 24 HOURS. 10/01/16 02:26 Aerobic Blood Culture - Preliminary Resulted Blood Peripheral NO GROWTH IN 1 DAY 10/01/16 02:26 Anaerobic Blood Culture - Preliminary Resulted Blood Peripheral NO GROWTH IN 1 DAY Result Diagram: 10/02/16 0541 10/02/16 0541 Assessment and Plan Problem List: (1) Syncope Status: Acute Plan: Appears to be secondary to cardiac issues Cardiology following patient (2) Diabetes type 2, uncontrolled Status: Acute (3) Sepsis Status: Resolved Plan: Had some leucocytosis and hypothermia on admission- now resolved- no source of infection at this time Follow blood cultures Stop Zyvox Leucocytosis has resolved If cultures remain negative- can stop Zosyn soon Lakia Delgado MD Oct 02, 2016 18:14
[2016-10-03] VITALS (29 sets, daily range): BP systolic 85–124; BP diastolic 48–67; PULSE 28–66; RESP 14–24; TEMP 97.7–98.5; O2SAT 94–97
[2016-10-03 04:55] LABS: BASOPHIL # 0.1 TH/MM3 (0-0.2); BASOPHIL % 0.8 % (0.0-2.0); EOSINOPHIL # 0.2 TH/MM3 (0-0.4); EOSINOPHIL % 2.3 % (0.0-4.0); HEMATOCRIT 34.5 % (39.0-51.0); HEMO FLAGS DIFF FINAL; LYMPH % 22.4 % (9.0-44.0); LYMPHOCYTE # 1.5 TH/MM3 (1.0-4.8); MEAN CELL VOLUME 94.6 FL (80.0-100.0); MEAN CORPUSCULAR HEMOGLOBIN 30.6 PG (27.0-34.0); MEAN CORPUSCULAR HGB CONC 32.4 % (32.0-36.0); MONO % 13.7 % (0.0-8.0); NEUT % 60.8 % (16.0-70.0); PLATELET COUNT 135 TH/MM3 (150-450); RED BLOOD COUNT 3.65 MIL/MM3 (4.50-5.90); RED CELL DISTRIBUTION WIDTH 14.4 % (11.6-17.2); WHITE BLOOD COUNT 6.7 TH/MM3 (4.0-11.0)
[2016-10-03 05:03] LABS: POTASSIUM 4.1 MEQ/L (3.5-5.1)
[2016-10-03 05:07] LABS: BICARBONATE 27.3 MEQ/L (21.0-32.0); MAGNESIUM 2.2 MG/DL (1.5-2.5)
[2016-10-03] MEDS: PIPERACIL-TAZO 3.375 GM PREMIX 50 ML IV SCH ×3 (05:50→17:21)
[2016-10-03] MEDS: CHLORHEXIDINE GLUCONATE 2 % 1 PACK (2 CLOTHS)(taper/protocol) TOPICAL SCH (05:51)
[2016-10-03] MEDS: DOCUSATE SODIUM 50 MG/SENNA 8.6 MG TAB PO SCH ×2 (08:06→20:29)
[2016-10-03] MEDS: ASPIRIN 81 MG CHEW TAB CHEW SCH (08:06)
[2016-10-03] MEDS: DIGOXIN 0.125 MG TAB PO SCH (08:06)
[2016-10-03] MEDS: CARVEDILOL 6.25 MG TAB PO SCH ×2 (08:06→20:29)
[2016-10-03] MEDS: FUROSEMIDE 40 MG TAB PO SCH ×2 (08:06→20:29)
[2016-10-03] MEDS: NEOMYCIN/POLYMYXIN/BACITRACIN OINT 15 GM TUBE TOPICAL SCH ×2 (08:07→12:00)
[2016-10-03] MEDS: SODIUM CHLORIDE 0.9% FLUSH 10 ML FLUSH IV FLUSH SCH ×2 (08:07→21:00)
[2016-10-03] MEDS: PANTOPRAZOLE SODIUM 40 MG VIAL IV SCH (08:07)
[2016-10-03] MEDS: INSULIN NovoLIN REGULAR SUPPLEMENTAL SCALE SQ SCH ×4 (08:08→20:32)
[2016-10-03] MEDS: SODIUM CHLOR 0.9% 1000 ML INJ 1,000 ML IV SCH (08:08)
[2016-10-03] MEDS ORDERED: SODIUM PHOSPHATE INJ 30 MMOL in SODIUM CHLOR 0.9% 250 ML INJ 250 ML IV ONE (13:00)
[2016-10-03 13:33] LABS: POTASSIUM 4.1 MEQ/L (3.5-5.1)
[2016-10-03 13:36] LABS: BICARBONATE 26.4 MEQ/L (21.0-32.0)
--- NOTE | 2016-10-03 13:40 | HHI.PR ---
Subjective Remarks Patient seen in room, still orthostatic. No more syncopal episodes SIRS resolved and cultures negative. 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 Vitals Vital Signs Date Time Temp Pulse Resp B/P Pulse Ox O2 Delivery O2 Flow Rate FiO2 10/03/16 13:00 62 21 99/51 10/03/16 12:00 97.7 62 22 111/56 95 10/03/16 12:00 62 10/03/16 10:03 62 19 95/50 10/03/16 10:00 60 10/03/16 10:00 60 24 85/49 10/03/16 09:00 58 16 109/60 10/03/16 08:00 98.4 62 17 114/56 94 10/03/16 08:00 62 10/03/16 07:00 60 19 111/58 10/03/16 06:00 62 21 108/58 96 10/03/16 06:00 28 10/03/16 05:00 62 20 104/52 96 10/03/16 04:00 60 10/03/16 04:00 98.5 58 15 112/60 96 10/03/16 03:00 62 14 107/62 96 10/03/16 02:24 62 16 107/61 10/03/16 02:00 63 10/03/16 01:00 62 15 121/56 10/03/16 00:00 97.9 62 16 115/59 10/03/16 00:00 59 10/02/16 23:00 58 16 128/64 10/02/16 22:00 58 15 122/60 96 10/02/16 22:00 60 10/02/16 21:00 58 14 109/53 96 10/02/16 20:12 98.3 60 22 117/53 96 10/02/16 20:00 60 10/02/16 20:00 96 21 10/02/16 19:15 58 18 104/61 96 10/02/16 18:30 62 10/02/16 18:00 62 23 110/60 96 10/02/16 17:01 60 27 109/66 95 10/02/16 16:18 97.9 10/02/16 16:07 95 Nasal Cannula 1.00 10/02/16 16:00 60 10/02/16 14:05 66 23 119/63 87 10/02/16 14:05 66 I/O 10/02/16 10/02/16 10/02/16 10/03/16 10/03/16 10/03/16 07:00 15:00 23:00 07:00 15:00 23:00 Intake Total 440 ml 846 ml 628 ml 368 ml Output Total 800 ml 876 ml 1775 ml 1550 ml Balance -360 ml -30 ml -1147 ml -1182 ml Intake Oral 360 ml 320 ml 60 ml IV Total 440 ml 486 ml 308 ml 308 ml Output Urine Total 800 ml 875 ml 1775 ml 1550 ml Stool Total 1 ml # Bowel Movements 2 2 Result Diagram: 10/03/16 0427 10/03/16 0427 Imaging Last Impressions Chest X-Ray 10/02/16 0600 Signed Impressions: Service Date/Time: Sunday, October 02, 2016 05:59 - CONCLUSION: Mild cardiac silhouette enlargement and pulmonary vascular congestion. No significant interval change. Yasmani Valentine MD Head CT 10/01/16 0000 Signed Impressions: Service Date/Time: Saturday, October 01, 2016 01:38 - CONCLUSION: 1. No acute intracranial abnormalities. Fady Srivastava MD Carotid Artery Ultrasound 10/01/16 0000 Signed Impressions: Service Date/Time: Saturday, October 01, 2016 20:14 - CONCLUSION: 1. Calcified plaque in the bulbs bilaterally extending to the origin of the ICA. Resultant mild, <50%%, ICA stenosis. No significant hemodynamic stenosis on the left. 2. Antegrade vertebral artery flow bilaterally. Gaudencio Serrano MD Objective Remarks GENERAL: This is a well-nourished, well-developed patient, in no apparent distress. CARDIOVASCULAR: Regular rate and rhythm without murmurs, gallops, or rubs. RESPIRATORY: Clear to auscultation. Breath sounds equal bilaterally. No wheezes , rales, or rhonchi. GASTROINTESTINAL: Abdomen soft, non-tender, nondistended. Normal active bowel sounds MUSCULOSKELETAL: Extremities without clubbing, cyanosis, or edema. NEURO: Alert & Oriented x4 to person, place, time, situation. Moves all ext x4 Date of Insertion: Oct 01, 2016 A/P Problem List: (1) Syncope ICD Code: R55 Status: Acute Plan: likely due to orthostatic hypotension ACEi held Coreg continues (2) Diabetes type 2, uncontrolled ICD Code: E11.65 Status: Acute Plan: continue current meds ada diet (3) ARF (acute renal failure) ICD Code: N17.9 Status: Acute Plan: improved avoid nephrotoxins (4) Sepsis ICD Code: A41.9 Status: Resolved Plan: SIRS/No source Follow blood cultures Leukocytosis has resolved If cultures remain negative- can stop Zosyn soon (5) Cardiomyopathy ICD Code: I42.9 Status: Acute Plan: with elevated trops/NSTEMI in syncopal setting (no Chest Pain) Continue medical management for now in this patient with known severe ischemia on CATH 2010; Ptn on BB, diuretic, mild congestion on my review of CXR AICD working (6) Afib ICD Code: I48.91 Status: Acute Plan: controlled,continue BB Warfarin INR stable (7) Hypophosphatemia ICD Code: E83.39 Status: Acute Plan: Toya Ahumada MD Oct 03, 2016 13:40
[2016-10-03 14:02] LABS: CKMB 3.6 NG/ML (0.5-3.6)
[2016-10-03] MEDS: WARFARIN SOD 4 MG TAB PO SCH (16:41)
[2016-10-03] MEDS ORDERED: INSULIN ASPART 1,000 UNITS/10 ML VIAL SQ SCH (17:00)
[2016-10-03] MEDS: MUPIROCIN 2% OINT 1 APPLIC/GM SYR NASAL SCH (20:29)
[2016-10-03] MEDS: INSULIN DETEMIR 100 UNITS/ML VIAL SQ SCH (20:31)
[2016-10-04] VITALS (25 sets, daily range): BP systolic 96–127; BP diastolic 52–88; PULSE 58–71; RESP 11–31; TEMP 97.7–98.6; O2SAT 94–97
[2016-10-04] MEDS: CHLORHEXIDINE GLUCONATE 2 % 1 PACK (2 CLOTHS)(taper/protocol) TOPICAL SCH (03:17)
[2016-10-04 06:15] LABS: PROTHROMBIN TIME - PATIENT 22.4 SEC (9.8-11.6)
[2016-10-04] MEDS: PIPERACIL-TAZO 3.375 GM PREMIX 50 ML IV SCH ×3 (06:27→12:20)
[2016-10-04] MEDS: SODIUM CHLOR 0.9% 1000 ML INJ 1,000 ML IV SCH (06:42)
[2016-10-04] MEDS: INSULIN NovoLIN REGULAR SUPPLEMENTAL SCALE SQ SCH ×4 (07:00→21:05)
[2016-10-04] MEDS: MUPIROCIN 2% OINT 1 APPLIC/GM SYR NASAL SCH ×2 (08:08→20:15)
[2016-10-04] MEDS: CARVEDILOL 6.25 MG TAB PO SCH ×3 (08:09→21:09)
[2016-10-04] MEDS: MULTIVITAMIN TAB PO SCH (08:09)
[2016-10-04] MEDS: ASPIRIN 81 MG CHEW TAB CHEW SCH (08:09)
[2016-10-04] MEDS: FUROSEMIDE 40 MG TAB PO SCH ×2 (08:09→20:14)
[2016-10-04] MEDS: PANTOPRAZOLE SOD 40 MG DELAYED RELEASE TAB PO SCH (08:09)
[2016-10-04] MEDS: DOCUSATE SODIUM 50 MG/SENNA 8.6 MG TAB PO SCH ×3 (08:09→20:14)
[2016-10-04] MEDS: DIGOXIN 0.125 MG TAB PO SCH (08:09)
[2016-10-04] MEDS: NEOMYCIN/POLYMYXIN/BACITRACIN OINT 15 GM TUBE TOPICAL SCH ×4 (08:10→22:53)
[2016-10-04 11:10] LABS: POTASSIUM 3.4 MEQ/L (3.5-5.1)
[2016-10-04 11:18] LABS: BICARBONATE 27.9 MEQ/L (21.0-32.0)
[2016-10-04] MEDS: SODIUM CHLORIDE 0.9% FLUSH 10 ML FLUSH IV FLUSH SCH ×2 (12:22→20:15)
--- NOTE | 2016-10-04 13:38 | HHI.PR ---
Subjective Remarks Patient seen and appears to be still hypotensive Hypoglycemia in the am at 55 after resuming home regimen patient was symptomatic Objective Vitals Vital Signs Date Time Temp Pulse Resp B/P Pulse Ox O2 Delivery O2 Flow Rate FiO2 10/04/16 13:00 62 31 102/54 95 10/04/16 12:00 97.7 60 21 106/57 10/04/16 12:00 60 10/04/16 11:22 97.7 61 19 114/58 94 112/61 115/69 10/04/16 10:00 60 10/04/16 10:00 60 16 116/68 10/04/16 09:00 62 15 114/53 10/04/16 08:00 71 10/04/16 08:00 64 21 96/60 10/04/16 07:30 95 21 10/04/16 07:00 97.9 64 14 103/55 95 10/04/16 06:00 60 10/04/16 06:00 62 11 127/66 10/04/16 05:00 58 11 114/61 10/04/16 04:00 60 10/04/16 04:00 58 18 112/59 10/04/16 03:00 98.5 60 15 119/58 10/04/16 02:00 60 12 109/58 96 10/04/16 02:00 59 10/04/16 01:00 58 18 117/59 95 10/04/16 00:00 63 10/04/16 00:00 58 17 109/59 96 10/03/16 23:00 98.5 60 14 109/56 95 10/03/16 22:00 58 14 116/66 10/03/16 22:00 60 10/03/16 21:00 62 15 108/56 97 10/03/16 20:43 60 20 115/57 95 10/03/16 20:30 58 19 102/53 97 10/03/16 20:00 58 15 117/57 96 10/03/16 20:00 59 10/03/16 19:48 97 21 10/03/16 19:00 98.1 60 18 110/57 96 10/03/16 18:00 62 24 104/48 95 10/03/16 18:00 62 10/03/16 17:00 66 20 124/67 10/03/16 16:00 62 10/03/16 16:00 97.8 62 15 117/62 94 10/03/16 15:00 66 20 117/62 10/03/16 14:00 64 10/03/16 14:00 64 24 103/57 I/O 10/03/16 10/03/16 10/03/16 10/04/16 10/04/16 10/04/16 07:00 15:00 23:00 07:00 15:00 23:00 Intake Total 368 ml 718 ml 770 ml 600 ml Output Total 1550 ml 1800 ml 1000 ml 950 ml Balance -1182 ml -1082 ml -230 ml -350 ml Intake Oral 60 ml 420 ml 440 ml 150 ml Oral Supplement 200 ml IV Total 308 ml 298 ml 330 ml 250 ml Output Urine Total 1550 ml 1800 ml 1000 ml 950 ml # Bowel Movements 2 1 Result Diagram: 10/03/16 0427 10/04/16 0455 Objective Remarks GENERAL: This is a well-nourished, well-developed patient, in no apparent distress. CARDIOVASCULAR: Regular rate and rhythm without murmurs, gallops, or rubs. RESPIRATORY: Clear to auscultation. Breath sounds equal bilaterally. No wheezes , rales, or rhonchi. GASTROINTESTINAL: Abdomen soft, non-tender, nondistended. Normal active bowel sounds MUSCULOSKELETAL: Extremities without clubbing, cyanosis, or edema. NEURO: Alert & Oriented x4 to person, place, time, situation. Moves all ext x4 Date of Insertion: Oct 01, 2016 A/P Problem List: (1) Syncope ICD Code: R55 Status: Acute Plan: likely due to orthostatic hypotension, improved ACEi held Coreg continues (2) Diabetes type 2, uncontrolled ICD Code: E11.65 Status: Acute Plan: continue current meds ada diet hypoglycemia this am on home regimen, (patient admits poor adherance to ADA diet at home) decrease TID insulin (3) ARF (acute renal failure) ICD Code: N17.9 Status: Acute Plan: improved avoid nephrotoxins (4) Sepsis ICD Code: A41.9 Status: Resolved Plan: SIRS/No source d/c antibiotics (5) Cardiomyopathy ICD Code: I42.9 Status: Acute Plan: with elevated trops/NSTEMI in syncopal setting (no Chest Pain) Continue medical management for now in this patient with known severe ischemia on CATH 2010; Ptn on BB, diuretic, mild congestion on my review of CXR AICD working (6) Afib ICD Code: I48.91 Status: Acute Plan: controlled,continue BB Warfarin INR 2.0 (7) Hypophosphatemia ICD Code: E83.39 Status: Acute Plan: replaced Assessment and Plan dvt ppx with warfarin Discharge Planning likely home in Toya Garcia MD Oct 04, 2016 13:38
[2016-10-04] MEDS: WARFARIN SOD 4 MG TAB PO SCH (16:31)
[2016-10-04] MEDS: INSULIN ASPART 1,000 UNITS/10 ML VIAL SQ SCH (17:00)
[2016-10-04] MEDS: INSULIN DETEMIR 100 UNITS/ML VIAL SQ SCH (21:00)
[2016-10-05] VITALS (14 sets, daily range): BP systolic 94–117; BP diastolic 48–75; PULSE 60–88; RESP 12–29; TEMP 97.6–98.4; O2SAT 90–98
[2016-10-05] MEDS: CHLORHEXIDINE GLUCONATE 2 % 1 PACK (2 CLOTHS)(taper/protocol) TOPICAL SCH (03:03)
[2016-10-05] MEDS: INSULIN NovoLIN REGULAR SUPPLEMENTAL SCALE SQ SCH ×2 (05:43→11:35)
[2016-10-05] MEDS: DIGOXIN 0.125 MG TAB PO SCH (08:25)
[2016-10-05] MEDS: FUROSEMIDE 40 MG TAB PO SCH (08:26)
[2016-10-05] MEDS: DOCUSATE SODIUM 50 MG/SENNA 8.6 MG TAB PO SCH (08:26)
[2016-10-05] MEDS: PANTOPRAZOLE SOD 40 MG DELAYED RELEASE TAB PO SCH (08:26)
[2016-10-05] MEDS: ASPIRIN 81 MG CHEW TAB CHEW SCH (08:26)
[2016-10-05] MEDS: MUPIROCIN 2% OINT 1 APPLIC/GM SYR NASAL SCH (08:26)
[2016-10-05] MEDS: CARVEDILOL 6.25 MG TAB PO SCH (08:26)
[2016-10-05] MEDS: MULTIVITAMIN TAB PO SCH (08:26)
[2016-10-05] MEDS: NEOMYCIN/POLYMYXIN/BACITRACIN OINT 15 GM TUBE TOPICAL SCH ×3 (08:36→13:18)
[2016-10-05] MEDS: SODIUM CHLORIDE 0.9% FLUSH 10 ML FLUSH IV FLUSH SCH (08:36)
[2016-10-05] MEDS: INSULIN ASPART 1,000 UNITS/10 ML VIAL SQ SCH ×2 (08:38→12:14)
--- NOTE | 2016-10-05 12:27 | HHI.FF ---
Face to Face Verification Diagnosis: (1) Renal insufficiency (2) Non-compliance (3) Cardiomyopathy Physical Therapy Order: Evaluate and Treat, Improve ambulation, Strength and gait training Home Health Nursing Order: Medical education Signs/symptoms of disease process Nursing assessment with vital signs I have seen patient Fady Santos Jr Levi on 10/05/16. My clinical findings support the need for the requested home health care services because: High risk of falls I certify that my clinical findings support that this patient is homebound because: Poor cardiac reserve Toya Francis MD Oct 05, 2016 12:27
--- NOTE | 2016-10-05 12:29 | HHI.DCPOC ---
Discharge Care Plan Diagnosis: (1) Renal insufficiency (2) ARF (acute renal failure) (3) Cardiomyopathy Goals to Promote Your Health * To prevent worsening of your condition and complications * To maintain your health at the optimal level Directions to Meet Your Goals Take your medications as prescribed Follow your dietary instruction Follow activity as directed Keep your appointments as scheduled Take your immunizations and boosters as scheduled If your symptoms worsen call your PCP, if no PCP go to Urgent Care Center or Emergency Room Smoking is Dangerous to Your Health. Avoid second hand smoke Call the 24-hour hour crisis hotline for domestic abuse at Toya Francis MD Oct 05, 2016 12:29
--- NOTE | 2016-10-05 12:34 | HHI.DS ---
metcare Discharge Summary Admission Date Oct 01, 2016 at 04:00 Discharge Date: Oct 05, 2016 Admitting Diagnosis severe sepsis (1) Syncope ICD Code: R55 Diagnosis: Principal (2) Diabetes type 2, uncontrolled ICD Code: E11.65 Diagnosis: Principal (3) ARF (acute renal failure) ICD Code: N17.9 Diagnosis: Principal (4) Sepsis ICD Code: A41.9 (5) Cardiomyopathy ICD Code: I42.9 Diagnosis: Principal (6) Afib ICD Code: I48.91 Diagnosis: Principal (7) Hypophosphatemia ICD Code: E83.39 Diagnosis: Principal Procedures none Brief History - From Admission This is a 76-year-old male who has a history of congestive heart failure and diabetes who presents to the emergency department having had an episode of syncope. Patient reports he was sitting down to dinner when all of a sudden he lost consciousness. He woke up and found himself on the floor. He had some weakness following the episode and had some difficulty standing up but was ultimately able to walk his dog and then call his friend helped him. He denies any chest pain or shortness of breath at the time. Critical care medicine was consulted for management .Upon my arrival to the ICU, the patient was noted to be sitting up semi-recumbent in the bed no noted dyspnea, alert and oriented 3 with a BP of 103/70. Upon discussion with patient, the patient has a AICD and per his report is needed to be changed/replaced. The patient does not remember experiencing an arrhythmia last night. Interrogation of AICD is pending this a.m.. History PFSH Past Medical History Arthritis: Yes (RIGHT KNEE) Atrial Fibrillation: Yes Autoimmune Disease: No Cancer: No Cardiac Catheterization: Yes Cardiovascular Problems: Yes Chest Pain: No Congestive Heart Failure: Yes Coronary Artery Disease: Yes Diabetes: Yes (ON INSULIN) Patient Takes Glucophage: No Diminished Hearing: Yes (HEARING AIDS BILAT) Endocrine: No GERD: Yes Genitourinary: No Hypertension: Yes Immune Disorder: No Musculoskeletal: Yes Neurologic: No Psychiatric: No Reproductive: No Respiratory: No Thyroid Disease: No Influenza Vaccination: Yes Past Surgical History AICD: Yes Cardiac Surgery: Yes (BYPASS IN , AICD 1990, PACEMAKER) Coronary Artery Bypass Graft: Yes (1995) Coronary Stent: Yes (2000) Pacemaker: Yes Other Surgery: Yes Social History Alcohol Use: Yes () Tobacco Use: No (QUIT 2004) Substance Use: No Allergies-Medications Allergies-Medications (Allergen,Severity, Reaction): Coded Allergies: Amiodarone (Verified Allergy, Unknown, 10/01/16) Reported Meds & Prescriptions Reported Meds & Active Scripts Active Reported Warfarin 4 Mg Tab 4 Mg PO DAILY Spironolactone 25 Mg Tab 12.5 Mg PO DAILY Multiple Vitamin 1 Tab 1 Tab PO DAILY Lisinopril 5 Mg Tab 5 Mg PO DAILY Lantus Inj (Insulin Glargine) 1,000 Unit/10 Ml Vial 50 Units SQ HS Novolog Inj (Insulin Aspart) 1,000 Unit/10 Ml Vial 20 Units SQ TIDAC Lasix (Furosemide) 40 Mg Tab 40 Mg PO BID Digox (Digoxin) 0.125 Mg Tab 0.125 Mg PO DAILY Coreg (Carvedilol) 6.25 Mg Tab 6.25 Mg PO BID Aspirin Low Dose (Aspirin) 81 Mg Chew 81 Mg CHEW DAILY ROS Review of Systems Except as stated in HPI: all other systems reviewed are Neg CBC/BMP: 10/03/16 0427 10/04/16 0455 Significant Findings Laboratory Tests Test 10/03/16 10/03/16 10/04/16 04:27 13:00 04:55 Red Blood Count 3.65 MIL/MM3 (4.50-5.90) Hemoglobin 11.2 GM/DL (13.0-17.0) Hematocrit 34.5 % (39.0-51.0) Platelet Count 135 TH/MM3 (150-450) Monocytes (%) (Auto) 13.7 % (0.0-8.0) Blood Urea Nitrogen 27 MG/DL (7-18) 26 MG/DL (7-18) 25 MG/DL (7-18) Creatinine 1.50 MG/DL 1.60 MG/DL 1.50 MG/DL (0.60-1.30) (0.60-1.30) (0.60-1.30) Estimat Glomerular Filtration 46 ML/MIN (>89) 42 ML/MIN (>89) 46 ML/MIN (>89) Rate Random Glucose 181 MG/DL 267 MG/DL 51 MG/DL (74-106) (74-106) (74-106) Calcium Level 7.9 MG/DL 8.3 MG/DL 8.3 MG/DL (8.5-10.1) (8.5-10.1) (8.5-10.1) Phosphorus Level 2.3 MG/DL 1.8 MG/DL (2.5-4.9) (2.5-4.9) Total Creatine Kinase 833 U/L 662 U/L (39-308) (39-308) Creatine Kinase MB 4.0 NG/ML (0.5-3.6) Troponin I 0.91 NG/ML (0.02-0.05) Prothrombin Time 22.4 SEC (9.8-11.6) Potassium Level 3.4 MEQ/L (3.5-5.1) Imaging Last Impressions Chest X-Ray 10/02/16 0600 Signed Impressions: Service Date/Time: Sunday, October 02, 2016 05:59 - CONCLUSION: Mild cardiac silhouette enlargement and pulmonary vascular congestion. No significant interval change. Yasmani Valentine MD Head CT 10/01/16 0000 Signed Impressions: Service Date/Time: Saturday, October 01, 2016 01:38 - CONCLUSION: 1. No acute intracranial abnormalities. Fady Srivastava MD Carotid Artery Ultrasound 10/01/16 0000 Signed Impressions: Service Date/Time: Saturday, October 01, 2016 20:14 - CONCLUSION: 1. Calcified plaque in the bulbs bilaterally extending to the origin of the ICA. Resultant mild, <50%%, ICA stenosis. No significant hemodynamic stenosis on the left. 2. Antegrade vertebral artery flow bilaterally. Gaudencio Serrano MD PE at Discharge GENERAL: This is a well-nourished, well-developed patient, in no apparent distress. CARDIOVASCULAR: Regular rate and rhythm without murmurs, gallops, or rubs. RESPIRATORY: Clear to auscultation. Breath sounds equal bilaterally. No wheezes , rales, or rhonchi. GASTROINTESTINAL: Abdomen soft, non-tender, nondistended. Normal active bowel sounds MUSCULOSKELETAL: Extremities without clubbing, cyanosis, or edema. NEURO: Alert & Oriented x4 to person, place, time, situation. Moves all ext x4 Pt update on day of discharge No new events, no further hypoglycemia. DW patient and RN regarding dc plans. Hospital Course Patient treated for hypotension and symptomatic orthostatic hypotension. His acei and BB and diuretics were held for a bit and he was given IVF. There was no evidence of sepsis although he was given IV ABX until his cultures returned negative. HE improved and was seen by cardiology. He had elevated trops which were trended and resolved. Pt Condition on Discharge: Good Discharge Disposition: Disch w/ Home Health Serv Discharge Time: > 30 minutes Discharge Instructions DIET: Follow Instructions for: Diabetic Diet, Coumadin (Warfarin) Diet Activities you can perform: Regular-No Restrictions Follow up Referrals: Cardiology - 10/07/16 @ [facility] Continued Medications: Aspirin (Aspirin Low Dose) 81 Mg Chew 81 MG CHEW DAILY Ref 0 TAB Digoxin (Digox) 0.125 Mg Tab 0.125 MG PO DAILY Regulate Heart Beat #30 Ref 0 TAB Furosemide (Lasix) 40 Mg Tab 40 MG PO BID #60 Ref 0 TAB Insulin Aspart Inj (Novolog Inj) 1,000 Unit/10 Ml Vial 20 UNITS SQ TIDAC Blood Sugar Management #10 Ref 0 ML Insulin Glargine Inj (Lantus Inj) 1,000 Unit/10 Ml Vial 50 UNITS SQ HS Blood Sugar Management Ref 0 VIAL Multiple Vitamin (Multiple Vitamin) 1 Tab 1 TAB PO DAILY Nutritional Supplement Ref 0 TAB Spironolactone (Spironolactone) 25 Mg Tab 12.5 MG PO DAILY #15 Ref 0 TAB Warfarin (Warfarin) 4 Mg Tab 4 MG PO DAILY Blood Clot Prevention #30 Ref 0 TAB Discontinued Medications: Carvedilol (Coreg) 6.25 Mg Tab 6.25 MG PO BID #60 Ref 0 TAB Lisinopril (Lisinopril) 5 Mg Tab 5 MG PO DAILY Blood Pressure Management #30 Ref 0 TAB Toya Francis MD Oct 05, 2016 12:34
== END 2016-10-05 14:00 | disposition home health service (06) | DRG 871 ==
LOC: PHED 00:25 → PHEDA 04:00 → PHICU 05:55
PROVIDERS: ADMIT Hospitalist; ATTEND Hospitalist
DX: A41.9 Sepsis, unspecified organism (principal); I21.4 Non-ST elevation (NSTEMI) myocardial infarction; N17.9 Acute kidney failure, unspecified; E87.2 Acidosis; I13.0 Hypertensive heart and chronic kidney disease with heart failure and stage 1 through stage 4 chronic kidney disease, or unspecified chronic kidney disease; I50.22 Chronic systolic (congestive) heart failure; D69.6 Thrombocytopenia, unspecified; I42.9 Cardiomyopathy, unspecified; M62.82 Rhabdomyolysis; E11.22 Type 2 diabetes mellitus with diabetic chronic kidney disease; E11.65 Type 2 diabetes mellitus with hyperglycemia; N18.9 Chronic kidney disease, unspecified; E16.2 Hypoglycemia, unspecified; E78.5 Hyperlipidemia, unspecified; E83.39 Other disorders of phosphorus metabolism; I48.91 Unspecified atrial fibrillation; I95.1 Orthostatic hypotension; J44.9 Chronic obstructive pulmonary disease, unspecified; I25.10 Atherosclerotic heart disease of native coronary artery without angina pectoris; H91.90 Unspecified hearing loss, unspecified ear; K21.9 Gastro-esophageal reflux disease without esophagitis; N40.1 Benign prostatic hyperplasia with lower urinary tract symptoms; R33.8 Other retention of urine; Z79.01 Long term (current) use of anticoagulants; Z79.4 Long term (current) use of insulin; Z79.82 Long term (current) use of aspirin; Z86.73 Personal history of transient ischemic attack (TIA), and cerebral infarction without residual deficits; Z87.891 Personal history of nicotine dependence; Z95.1 Presence of aortocoronary bypass graft; Z95.5 Presence of coronary angioplasty implant and graft; Z95.810 Presence of automatic (implantable) cardiac defibrillator
CPT/HCPCS: 70450; 71010; 76937; 80048; 80053; 80162; 81001; 82550; 82552; 82948; 83605; 83735; 83880; 84100; 84145; 84484; 85025; 85379; 85610; 85730; 87040; 87086; 87641; 93005; 93306; 93880; 96365; 96367; C9113; J1815; J2020; J2543; J3370; J7030; J7040; J7050; P9612

== ENCOUNTER 2016-10-25 12:45 | Observation (INO) | payer MEDICARE, OTHER ==
[~2016-10-25 12:45] MED LIST changes: +ASPI81CH37 CHEW; -CARV6.25 PO; -DIGO0.12 PO; +DIGO0.127 PO; +FURO1TAB60 PO; -FURO1TAB93 PO; +LANTUS2P SQ; -LANTUSP SQ; -LEVA500T PO; -LISI-357 PO; +MULTTAB67 PO; -ROSU40 PO; -SM A81CH PO; -TAB-TAB PO; -TAMS0.4C67 PO
--- NOTE | 2016-10-25 13:11 | PD ---
HPI Chief Complaint: diabetes Time Seen by Provider: 13:11 Travel History International Travel<30 days: No Contact w/Intl Traveler<30days: No Traveled to known affect area: No History of Present Illness HPI 76 year old with history of CAD, hypertension, A. fib, diabetes presents to emergency department today for evaluation of altered mental status. Patient was at the [facility] for a foot exam when he was found unresponsive in the waiting area. Patient's blood glucose at that time was 42. IJ access was obtained by [facility] patient was given D50. Pt responded but upon arrival, patient became diaphoretic and BG had dropped again to 62. Pt was given another amp of D50. Currently he is a poor historian. He cannot recall what medication, if any that he took this morning. Denies any injury. Denies any pain. PFSH Past Medical History Arthritis: Yes (RIGHT KNEE) Atrial Fibrillation: Yes Autoimmune Disease: No Cancer: No Cardiac Catheterization: Yes Cardiovascular Problems: Yes Chest Pain: No Congestive Heart Failure: Yes Coronary Artery Disease: Yes Diabetes: Yes (ON INSULIN) Diminished Hearing: Yes (HEARING AIDS BILAT) Endocrine: No GERD: Yes (related to diet) Genitourinary: No Hypertension: Yes Immune Disorder: No Musculoskeletal: Yes Neurologic: No Psychiatric: No Reproductive: No Respiratory: No Thyroid Disease: No Past Surgical History AICD: Yes Cardiac Surgery: Yes ([place] , AICD 1990, PACEMAKER) Coronary Artery Bypass Graft: Yes (1995) Coronary Stent: Yes (2000) Pacemaker: Yes Other Surgery: Yes Social History Alcohol Use: Yes () Tobacco Use: No (QUIT 2004) Substance Use: No Allergies-Medications (Allergen,Severity, Reaction): Coded Allergies: Amiodarone (Verified Allergy, Unknown, 10/01/16) *MDRO Multi-Drug Resistant Organism (Verified Adverse Reaction, Unknown, ) 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 Reported Meds & Prescriptions Reported Meds & Active Scripts Active Reported Warfarin 4 Mg Tab 4 Mg PO DAILY Spironolactone 25 Mg Tab 12.5 Mg PO DAILY Multiple Vitamin 1 Tab 1 Tab PO DAILY Lantus Inj (Insulin Glargine) 1,000 Unit/10 Ml Vial 50 Units SQ HS Novolog Inj (Insulin Aspart) 1,000 Unit/10 Ml Vial 20 Units SQ TIDAC Lasix (Furosemide) 40 Mg Tab 40 Mg PO BID Digox (Digoxin) 0.125 Mg Tab 0.125 Mg PO DAILY Aspirin Low Dose (Aspirin) 81 Mg Chew 81 Mg CHEW DAILY Review of Systems ROS Limitations: Altered Mental Status, Poor Historian Except as stated in HPI: all other systems reviewed are Neg Physical Exam Exam Limitations: Altered Mental Status, Poor Historian Narrative GENERAL: Well nourished elderly male patient, pleasant, confused; in no acute distress. SKIN: Warm and diaphoretic HEAD: Atraumatic. Normocephalic. EYES: Pupils equal and round. No scleral icterus. No injection or drainage. ENT: No nasal bleeding or discharge. Mucous membranes pink and moist. NECK: Trachea midline. No JVD. CARDIOVASCULAR: Regular rate and rhythm. RESPIRATORY: No accessory muscle use. Clear to auscultation. Breath sounds equal bilaterally. GASTROINTESTINAL: Abdomen soft, non-tender, nondistended. Hepatic and splenic margins not palpable. MUSCULOSKELETAL: Extremities without clubbing, cyanosis, or edema. No obvious deformities. NEUROLOGICAL: Awake and alert; confused. No obvious cranial nerve deficits. Moving all extremities. Five out of 5 muscle strength in the arms and legs. Normal speech. Data Data Last Documented VS Vital Signs Date Time Temp Pulse Resp B/P Pulse Ox O2 Delivery O2 Flow Rate FiO2 10/25/16 13:26 60 15 99 Nasal Cannula 2 10/25/16 13:26 130/72 10/25/16 13:26 98.8 Orders Bedside Glucose Q15M (10/25/16 13:19) Hypoglycemia 70 Mg/Dl Or < (10/25/16 13:19) Dextrose 50% In [place] (Vial) Inj (D50w (Vi (10/25/16 13:30) Dextrose 50% In [place] (Syr) Inj (D50w (Syr (10/25/16 13:20) Electrocardiogram (10/25/16 13:20) Basic Metabolic Panel (Bmp) (10/25/16 13:20) Ckmb (Isoenzyme) Profile (10/25/16 13:20) Complete Blood Count With Diff (10/25/16 13:20) Magnesium (Mg) (10/25/16 13:20) Prothrombin Time / Inr (Pt) (10/25/16 13:20) Act Partial Throm Time (Ptt) (10/25/16 13:20) Troponin I (10/25/16 13:20) Chest, Single Ap (10/25/16 13:20) Ecg Monitoring (10/25/16 13:20) Bilateral Bp Monitoring (10/25/16 13:20) Iv Access Insert/Monitor (10/25/16 13:20) Oximetry (10/25/16 13:20) Oxygen Administration (10/25/16 13:20) Sodium Chloride 0.9% Flush (Ns Flush) (10/25/16 13:30) Ct Brain W/O Iv Contrast(Rout) (10/25/16 ) CKMB (10/25/16 13:35) CKMB% (10/25/16 13:35) Admit Order (Ed Use Only) (10/25/16 15:04) Labs Laboratory Tests Test 10/25/16 13:35 White Blood Count 8.7 TH/MM3 Red Blood Count 3.75 MIL/MM3 Hemoglobin 11.8 GM/DL Hematocrit 35.8 % Mean Corpuscular Volume 95.3 FL Mean Corpuscular Hemoglobin 31.3 PG Mean Corpuscular Hemoglobin 32.9 % Concent Red Cell Distribution Width 15.6 % Platelet Count 166 TH/MM3 Mean Platelet Volume 9.6 FL Neutrophils (%) (Auto) 67.9 % Lymphocytes (%) (Auto) 16.7 % Monocytes (%) (Auto) 13.0 % Eosinophils (%) (Auto) 1.3 % Basophils (%) (Auto) 1.1 % Neutrophils # (Auto) 5.9 TH/MM3 Lymphocytes # (Auto) 1.4 TH/MM3 Monocytes # (Auto) 1.1 TH/MM3 Eosinophils # (Auto) 0.1 TH/MM3 Basophils # (Auto) 0.1 TH/MM3 CBC Comment DIFF FINAL Differential Comment Prothrombin Time 25.7 SEC Prothromb Time International 2.2 RATIO Ratio Activated Partial 32.0 SEC Thromboplast Time Sodium Level 137 MEQ/L Potassium Level 4.4 MEQ/L Chloride Level 103 MEQ/L Carbon Dioxide Level 24.7 MEQ/L Anion Gap 9 MEQ/L Blood Urea Nitrogen 15 MG/DL Creatinine 1.35 MG/DL Estimat Glomerular Filtration 52 ML/MIN Rate Random Glucose 225 MG/DL Calcium Level 8.8 MG/DL Magnesium Level 2.2 MG/DL Total Creatine Kinase 196 U/L Creatine Kinase MB 3.7 NG/ML Troponin I 0.03 NG/ML MDM Medical Decision Making Medical Screen Exam Complete: Yes Emergency Medical Condition: Yes Medical Record Reviewed: Yes Differential Diagnosis Electrolyte abnormality versus intracranial etiology versus sepsis Narrative Course 76-year-old male presents to the emergency department for evaluation after being found unresponsive in the [facility] waiting room. Patient was hypoglycemic initially. After an amp of D50, his blood sugar did improve however it is beginning to drop upon arrival here. He was given another amp. Of D50 here. Last Impressions Chest X-Ray 10/25/16 1320 Signed Impressions: Service Date/Time: Tuesday, October 25, 2016 13:38 - CONCLUSION: Mild pulmonary venous congestion. Elijah Benites MD Head CT 10/25/16 0000 Signed Impressions: Service Date/Time: Tuesday, October 25, 2016 14:21 - CONCLUSION: Slight atrophic and small vessel ischemic changes without any evidence for acute hemorrhage or mass effect. Elijah Benites MD Laboratory Tests Test 10/25/16 13:35 White Blood Count 8.7 TH/MM3 Red Blood Count 3.75 MIL/MM3 Hemoglobin 11.8 GM/DL Hematocrit 35.8 % Mean Corpuscular Volume 95.3 FL Mean Corpuscular Hemoglobin 31.3 PG Mean Corpuscular Hemoglobin 32.9 % Concent Red Cell Distribution Width 15.6 % Platelet Count 166 TH/MM3 Mean Platelet Volume 9.6 FL Neutrophils (%) (Auto) 67.9 % Lymphocytes (%) (Auto) 16.7 % Monocytes (%) (Auto) 13.0 % Eosinophils (%) (Auto) 1.3 % Basophils (%) (Auto) 1.1 % Neutrophils # (Auto) 5.9 TH/MM3 Lymphocytes # (Auto) 1.4 TH/MM3 Monocytes # (Auto) 1.1 TH/MM3 Eosinophils # (Auto) 0.1 TH/MM3 Basophils # (Auto) 0.1 TH/MM3 CBC Comment DIFF FINAL Differential Comment Prothrombin Time 25.7 SEC Prothromb Time International 2.2 RATIO Ratio Activated Partial 32.0 SEC Thromboplast Time Sodium Level 137 MEQ/L Potassium Level 4.4 MEQ/L Chloride Level 103 MEQ/L Carbon Dioxide Level 24.7 MEQ/L Anion Gap 9 MEQ/L Blood Urea Nitrogen 15 MG/DL Creatinine 1.35 MG/DL Estimat Glomerular Filtration 52 ML/MIN Rate Random Glucose 225 MG/DL Calcium Level 8.8 MG/DL Magnesium Level 2.2 MG/DL Total Creatine Kinase 196 U/L Creatine Kinase MB 3.7 NG/ML Troponin I 0.03 NG/ML I discussed the patient my attending physician agrees the patient benefit from observation admission. I discussed the patient with LUPIS Milan. Patient will be admitted to the [facility] service. 1530 Pt decided that he does not want to stay in the hospital. He states that he has an animal at home. I discussed with him the risk of his blood glucose dropping again resulting in him losing consciousness again. I explained the patient that by him leaving he would be leaving against medical advise and this decision may result in consequences not limited to paralysis, and/or . Patient verbalizes understanding and wishes to leave AGAINST MEDICAL ADVICE at this time. Diagnosis Primary Impression: Hypoglycemia associated with diabetes Disposition: 07 AGAINST MEDICAL ADVICE Condition: Stable Tish Gray Oct 25, 2016 13:11
[2016-10-25] MEDS ORDERED: DEXTROSE 50% IN WATER 50 ML SYRINGE ONE (13:20)
[2016-10-25 13:26] VITALS: BP_SYST 127; BP_SYST 130; BP_DIAS 68; BP_DIAS 72; PULSE 60; RESP 15; TEMP 98.8; O2SAT 100; O2SAT 99
[2016-10-25] MEDS ORDERED: SODIUM CHLORIDE 0.9% FLUSH 10 ML FLUSH IVF PRN (13:30)
[2016-10-25] MEDS ORDERED: DEXTROSE 50% IN WATER 50 ML VIAL(D50) IV PRN ×2 (13:30→15:15)
[2016-10-25 14:01] LABS: AUTOMATED NEUTROPHIL # 5.9 TH/MM3 (1.8-7.7); BASOPHIL # 0.1 TH/MM3 (0-0.2); BASOPHIL % 1.1 % (0.0-2.0); EOSINOPHIL # 0.1 TH/MM3 (0-0.4); EOSINOPHIL % 1.3 % (0.0-4.0); HEMATOCRIT 35.8 % (39.0-51.0); HEMO FLAGS DIFF FINAL; LYMPH % 16.7 % (9.0-44.0); LYMPHOCYTE # 1.4 TH/MM3 (1.0-4.8); MEAN CELL VOLUME 95.3 FL (80.0-100.0); MEAN CORPUSCULAR HEMOGLOBIN 31.3 PG (27.0-34.0); MEAN CORPUSCULAR HGB CONC 32.9 % (32.0-36.0); NEUT % 67.9 % (16.0-70.0); PLATELET COUNT 166 TH/MM3 (150-450); RED BLOOD COUNT 3.75 MIL/MM3 (4.50-5.90); RED CELL DISTRIBUTION WIDTH 15.6 % (11.6-17.2); WHITE BLOOD COUNT 8.7 TH/MM3 (4.0-11.0)
[2016-10-25 14:08] LABS: INTERNATIONAL NORMALIZED RATIO 2.2 RATIO; PROTHROMBIN TIME - PATIENT 25.7 SEC (9.8-11.6)
[2016-10-25 14:28] LABS: ANION GAP 9 MEQ/L (5-15); BICARBONATE 24.7 MEQ/L (21.0-32.0); BLOOD UREA NITROGEN 15 MG/DL (7-18); CHLORIDE 103 MEQ/L (98-107); CREATINE KINASE 196 U/L (39-308); GLOMERULAR FILTRATION RATE 52 ML/MIN (>89); MAGNESIUM 2.2 MG/DL (1.5-2.5); POTASSIUM 4.4 MEQ/L (3.5-5.1); SODIUM (NA) 137 MEQ/L (136-145)
[2016-10-25 14:40] LABS: CKMB 3.7 NG/ML (0.5-3.6)
--- NOTE | 2016-10-25 14:42 | RADRPT ---
EXAM DATE/TIME: 10/25/2016 14:21 [facility] COMPARISON: CT BRAIN W/O CONTRAST, October 01, 2016, 1:38. INDICATIONS : Evaluate for altered mental status. RADIATION DOSE: 56.35 CTDIvol (mGy) MEDICAL HISTORY : Cardiovascular disease. Hypertension. AFIB SURGICAL HISTORY : Defibrillator. Pacemaker. ENCOUNTER: Initial ACUITY: 1 day PAIN SCALE: 2/10 LOCATION: Bilateral cranial TECHNIQUE: Multiple contiguous axial images were obtained of the head. Using automated exposure control and adj ustment of the mA and/or kV according to patient size, radiation dose was kept as low as reasonably a chievable to obtain optimal diagnostic quality images. DICOM format image data is available electro nically for review and comparison. FINDINGS: There is no evidence for intracranial hemorrhage, mass effect, mass lesions, or edema. The visualize d bony structures appear intact. Slight degree of brain atrophy is seen. Slight periventricular whit e matter changes are seen nonspecific mostly consistent with chronic small vessel ischemic changes. There are no signs of acute infarction for technique. CONCLUSION: Slight atrophic and small vessel ischemic changes without any evidence for acute hemorrhage or mass effect. Elijah Benites MD on October 25, 2016 at 14:39 Board Certified Radiologist. This report was verified electronically.
[2016-10-25 15:13] VITALS: BP 118/65
[2016-10-25 15:14] VITALS: O2SAT 98
[2016-10-25] MEDS ORDERED: GLUCAGON 1 MG/ML VIAL OTHER PRN (15:15)
--- NOTE | 2016-10-25 15:18 | RADRPT ---
EXAM DATE/TIME: 10/25/2016 13:38 [facility] COMPARISON: CHEST SINGLE AP, October 02, 2016, 5:59. INDICATIONS : Syncope. Hypoglycemia. MEDICAL HISTORY : Congestive heart failure. Diabetes mellitus type I. Arthritis. Atrial fibrilation. Hypertenstion. Gastroesophageal reflux disease. SURGICAL HISTORY : CABG. Pacemaker. Coronary artery stent. ENCOUNTER: Subsequent ACUITY: 1 day PAIN SCORE: 0/10 LOCATION: Bilateral chest FINDINGS: There is evidence for prior median sternotomy. Left subclavian pacer wires are present with tips in t he right atrium and right ventricle. There is mild haziness to the lungs mainly on the right side jose picious for mild case of pulmonary venous congestion. CONCLUSION: Mild pulmonary venous congestion. Elijah Benites MD on October 25, 2016 at 15:15 Board Certified Radiologist. This report was verified electronically.
--- NOTE | 2016-10-25 15:20 | HHI.PR ---
Addendum to Inpatient Note Addendum Reason: Additional Documentation Additional Information Called for admission for this patient for persistent hypoglycemia and altered mental status. However, immediately after accepting admission for this patient , was informed by ED staff that the patient is refusing admission and is leaving AGAINST MEDICAL ADVICE prior to being able to be evaluated by hospitalist. D/W Dr. Hernandez. Bjorn Franco Oct 25, 2016 15:20
[2016-10-25] MEDS ORDERED: D5-1/2 NS + KCL 20 MEQ INJ 1,000 ML IV SCH (16:11)
[2016-10-25] MEDS ORDERED: SODIUM CHLORIDE 0.9% FLUSH 10 ML FLUSH IV FLUSH SCH (21:00)
--- NOTE | 2016-10-26 17:00 | EKG ---
Date Performed: 10/25/2016 Time Performed: 13:53:04 PTAGE: 76 years EKG: ELECTRONIC VENTRICULAR PACEMAKER ABNORMAL RHYTHM ECG PREVIOUS TRACING : 10/01/2016 08.41 Compared to prior tracing no significant change DOCTOR: Erinn Staples Interpretating Date/Time 10/26/2016 16:59:30
== END 2016-10-25 15:27 | disposition left against medical advice (07) ==
LOC: NEPC 12:45 → NEDA 15:05
PROVIDERS: ADMIT Hospitalist; ATTEND Hospitalist
DX: R41.82 Altered mental status, unspecified (principal); E11.9 Type 2 diabetes mellitus without complications; I48.91 Unspecified atrial fibrillation; Z79.01 Long term (current) use of anticoagulants; I25.10 Atherosclerotic heart disease of native coronary artery without angina pectoris; Z95.1 Presence of aortocoronary bypass graft; Z95.0 Presence of cardiac pacemaker; I11.0 Hypertensive heart disease with heart failure; Z87.891 Personal history of nicotine dependence; K21.9 Gastro-esophageal reflux disease without esophagitis; Z98.61 Coronary angioplasty status; M17.11 Unilateral primary osteoarthritis, right knee; Z79.899 Other long term (current) drug therapy; I50.9 Heart failure, unspecified; Z79.82 Long term (current) use of aspirin; R94.31 Abnormal electrocardiogram [ECG] [EKG]
CPT/HCPCS: 70450; 71010; 80048; 82550; 82552; 83735; 84484; 85025; 85610; 85730; 93005; 96374